=== PATIENT | female | born 1990 | race African-American/Black ===

== ENCOUNTER → 2016-09-29 | Outpatient (CLI) | payer MEDICAID | LOC: RAD 08:44 | PROVIDERS: ATTEND Physician Assistant | DX: K21.0 Gastro-esophageal reflux disease with esophagitis (principal); R13.12 Dysphagia, oropharyngeal phase | CPT/HCPCS: 74220 ==

== ENCOUNTER 2016-10-14 19:23 | Emergency (ER) | payer MEDICAID ==
[2016-10-14] MEDS ORDERED: DEXAMETHASONE SOD PHOS INJ 10 MG/1 ML VIAL IM ONE (20:10)
--- NOTE | 2016-10-14 20:10 | ER Document Report ---
ED Skin Rash/Insect Bite/Abscs - General Chief Complaint: Rash Stated Complaint: POSSIBLE RASH Time seen by provider: 20:03 Mode of Arrival: Ambulatory Information source: Patient Notes: 26-year-old female presents to ED for rash to the arms and chest for 2 weeks. She seen her primary doctor and they did not give her any medication and she has not been able to get any relief from Benadryl or [id number]-[id number] creams or ointments. TRAVEL OUTSIDE OF THE [place] IN LAST 30 DAYS: No - HPI Patient complains to provider of: Skin rash/lesion Onset: Other Onset/Duration: Gradual - 2 weeks, Persistent Quality of pain: No pain Severity: None Pain Level: Denies Skin Character: Rash Quality of rash: Itchy Identify cause: No Exacerbated by: Denies Relieved by: Denies Similar symptoms previously: Yes Recently seen / treated by doctor: Yes - Related Data Allergies/Adverse Reactions: No Known Allergies Allergy (Verified 08/24/15 12:50) Past Medical History - General Information source: Patient - Social History Smoking Status: Current Every Day Smoker Cigarette use (# per day): Yes - half pack a day Chew tobacco use (# tins/day): No Smoking Education Provided: Yes - less than a minute Frequency of alcohol use: None Drug Abuse: None Occupation: [employer]ATOR [employer] Lives with: Alone - Along with her child Family History: Arthritis, DM, Hyperlipidemia, Hypertension Patient has suicidal ideation: No Patient has homicidal ideation: No - Past Medical History Cardiac Medical History: Reports: None Pulmonary Medical History: Reports: None EENT Medical History: Reports: None Neurological Medical History: Reports: None Endocrine Medical History: Reports: None Renal/ Medical History: Reports: None Malignancy Medical History: Reports: None GI Medical History: Reports: None Musculoskeltal Medical History: Reports None Skin Medical History: Reports None Psychiatric Medical History: Reports: Hx Anxiety Traumatic Medical History: Reports: None Infectious Medical History: Reports: None Surgical Hx: Negative Past Surgical History: Reports: None - Immunizations Hx Diphtheria, Pertussis, Tetanus Vaccination: Yes Review of Systems - Review of Systems Constitutional: No symptoms reported EENT: No symptoms reported Cardiovascular: No symptoms reported Respiratory: No symptoms reported Gastrointestinal: No symptoms reported Genitourinary: No symptoms reported Female Genitourinary: No symptoms reported Musculoskeletal: No symptoms reported Skin: Rash - Bilateral arms and chest Hematologic/Lymphatic: No symptoms reported Neurological/Psychological: No symptoms reported -: Yes All other systems reviewed and negative Physical Exam - Vital signs Vitals: Temp Pulse Resp BP Pulse Ox 98.6 F 82 18 128/84 H 99 10/14/16 19:44 10/14/16 19:44 10/14/16 19:44 10/14/16 19:44 10/14/16 19:44 Interpretation: Normal - General General appearance: Appears well, Alert - HEENT Head: Normocephalic, Atraumatic Eyes: Normal Pupils: PERRL - Respiratory Respiratory status: No respiratory distress Chest status: Nontender Breath sounds: Normal Chest palpation: Normal - Cardiovascular Rhythm: Regular Heart sounds: Normal auscultation Murmur: No - Abdominal Inspection: Normal Distension: No distension Bowel sounds: Normal Tenderness: Nontender Organomegaly: No organomegaly - Back Back: Normal, Nontender - Extremities General upper extremity: Normal inspection, Nontender, Normal color, Normal ROM , Normal temperature General lower extremity: Normal inspection, Nontender, Normal color, Normal ROM , Normal temperature, Normal weight bearing. No: Jessica's sign - Neurological Neuro grossly intact: Yes Cognition: Normal Orientation: AAOx4 Jn Coma Scale Eye Opening: Spontaneous [place] Coma Scale Verbal: Oriented [place] Coma Scale Motor: Obeys Commands [place] Coma Scale Total: 15 Speech: Normal Motor strength normal: LUE, RUE, LLE, RLE Sensory: Normal - Psychological Associated symptoms: Normal affect, Normal mood - Skin Skin Temperature: Warm Skin Moisture: Dry Skin Color: Normal Skin irregularity: Rash - Bilateral arms and chest Location of irregularity: Chest, Extremities - Arms Character of irregularity: Macular, Fine, Erythematous Course - Vital Signs Vital signs: Temp Pulse Resp BP Pulse Ox 98.6 F 82 18 128/84 H 99 10/14/16 19:44 10/14/16 19:44 10/14/16 19:44 10/14/16 19:44 10/14/16 19:44 Discharge - Discharge Clinical Impression: Allergic reaction Qualifiers: Encounter type: initial encounter Qualified Code(s): T78.40XA - Allergy, unspecified, initial encounter Condition: Stable Disposition: HOME, SELF-CARE Additional Instructions: ACUTE ALLERGIC REACTION: Your symptoms are due to an allergic reaction. Allergy can cause hives, swelling of the hands, feet, and face, hoarseness, and difficulty swallowing or breathing. It may be due to exposure to medication, animal dander, foods, infection, or insect bites. Medication is a common cause, even when prior use of this same medication caused no problems. Acute treatment may include adrenalin and antihistamines. Usually, the specific allergic agent can't be identified unless repeated episodes occur. Home treatment includes the following: (1) Stop any suspicious medications. This will be discussed with you. (2) Oral antihistamines for the next four to five days. Example, diphenhydramine (Benadryl) every four hours. (3) You may also use cimetidine (Tagamet), ranitidine (Zantac), or famotidine ( Pepcid) every four hours if diphenhydramine is not controlling itching and hives. (4) Avoid aspirin until the hives completely disappear. (5) Avoid hot baths or showers until the hives are completely gone. Call the doctor if faintness, difficulty swallowing, tightness in the chest , or wheezing occurs. STEROID MEDICATION INJECTION: You have been given an injection of medicine of the cortisone/steroid class. This medication is used to control inflammation or allergy. It is often continued as a pill for a short period of time, until the acute process subsides. There are usually no side effects from short-term use of cortisone-like medications. Some persons feel an increased sense of well-being and are not sleepy at bedtime. Long-term use of cortisone medications is best avoided, unless required for a severe condition. If your condition does not remit, or relapses after the course of corticosteroid medication, you should consult your physician. ACID-SUPPRESSING MEDICATION: You have a prescription for medicine which reduces the stomach's secretion of acid. Examples include Zantac, Tagament, and Pepcid. These drugs are often used to allow healing of ulcers or esophagitis. They may be needed to prevent recurrence of ulcers in some patients, or to prevent damage from acid reflux in the esophagus. Take all medication as prescribed, even after the pain is gone. Regular antacids may be added as needed if you have symptoms while taking this medicine. These medications sometimes are prescribed for allergic reactions because they have anti-histaminic effects and relieve the rash and itching of the reaction. There are usually no side effects from this medication. But, in rare cases and particularly in the elderly, serious problems can occur. Contact your doctor if there is fever, rash, hallucinations, confusion, or unusual bruising. Contact your doctor at once if you develop lightheadedness, black or bloody stool, or bloody vomitus. ANTIHISTAMINES: An antihistamine has been given and/or prescribed to control your symptoms. Antihistamines are used for many reasons, including itching, watering eyes, runny nose, allergic swelling, hives, and insect stings. Antihistamines may cause drowsiness, especially with the first dose. Do not operate machinery or drive while under the effects of the medication. Other common side effects include dry mouth and eyes. In older persons, antihistamines can occasionally cause urinary retention, constipation, and trouble focusing the eyes. Do not combine the medication with alcohol, or with any other medication without talking to your doctor. FOLLOW-UP CARE: If you have been referred to a physician for follow-up care, call the physician s office for an appointment as you were instructed or within the next two days. If you experience worsening or a significant change in your symptoms, notify the physician immediately or return to the Emergency Department at any time for re-evaluation. Prescriptions: Famotidine [Pepcid 20 mg Tablet] 20 mg PO BID #12 tablet Hydrocortisone Valerate [Westcort] 15 gm TP BID #1 cream.gm. Hydroxyzine HCl [Atarax 25 mg Tablet] 1 tab PO TIDP PRN #25 tablet PRN Reason: Forms: Elevated Blood Pressure, Return to Work Referrals: INNA FRANKEL DO [ACTIVE STAFF] - Follow up as needed
[2016-10-14] MEDS ORDERED: FAMOTIDINE 20 MG TABLET PO ONE (20:14)
[2016-10-14 20:33] VITALS: BP 117/76
== END 2016-10-14 20:34 | disposition home or self-care (01) ==
LOC: ER 19:23
DX: T78.40XA Allergy, unspecified, initial encounter (principal); R21 Rash and other nonspecific skin eruption; X58.XXXA Exposure to other specified factors, initial encounter; F17.210 Nicotine dependence, cigarettes, uncomplicated; Z71.6 Tobacco abuse counseling
CPT/HCPCS: 99282; 96372; J3490; J1100

== ENCOUNTER 2016-12-22 08:23 | Emergency (ER) | payer MEDICAID ==
[2016-12-22 08:29] VITALS: BP 139/88
[2016-12-22] MEDS ORDERED: AMOXICILLIN TRIHYDRATE 500 MG CAPSULE PO ONE (08:53)
[2016-12-22] MEDS ORDERED: DEXAMETHASONE 4 MG TABLET PO ONE (08:53)
[2016-12-22] MEDS ORDERED: IBUPROFEN 600 MG TABLET PO ONE (08:53)
--- NOTE | 2016-12-22 08:58 | ER Document Report ---
ED General - General Chief Complaint: Sore Throat Stated Complaint: THROAT PAIN, BODY ACHE Time Seen by Provider: 12/22/16 08:32 TRAVEL OUTSIDE OF THE [place] IN LAST 30 DAYS: No - HPI Patient complains to provider of: Diffuse myalgias sore throat Notes: Patient coming in for evaluation sore throat. Body aches. Patient denies fevers chills nausea vomiting. Patient denies any sick contacts. Denies any recent antibiotics. Patient denies any recent travel. Upon my evaluation patient nontoxic looking no obvious distress - Related Data Allergies/Adverse Reactions: No Known Allergies Allergy (Verified 08/24/15 12:50) Past Medical History - Social History Smoking Status: Unknown if Ever Smoked Family History: Arthritis, DM, Hyperlipidemia, Hypertension Renal/ Medical History: Denies: Hx Peritoneal Dialysis Psychiatric Medical History: Reports: Hx Anxiety Infectious Medical History: Denies: Hx MRSA - Immunizations Hx Diphtheria, Pertussis, Tetanus Vaccination: Yes Review of Systems - Review of Systems Constitutional: No symptoms reported EENT: Throat pain Cardiovascular: No symptoms reported Respiratory: No symptoms reported Gastrointestinal: No symptoms reported Genitourinary: No symptoms reported Female Genitourinary: No symptoms reported Musculoskeletal: No symptoms reported Skin: No symptoms reported Hematologic/Lymphatic: No symptoms reported Neurological/Psychological: No symptoms reported -: Yes All other systems reviewed and negative Physical Exam - Vital signs Vitals: Temp Pulse Resp BP Pulse Ox 99.6 F 115 H 18 139/88 H 97 12/22/16 08:26 12/22/16 08:26 12/22/16 08:26 12/22/16 08:26 12/22/16 08:26 Interpretation: Normal - General General appearance: Appears well, Alert - HEENT Head: Normocephalic, Atraumatic Eyes: Normal Conjunctiva: Normal Cornea: Normal Extraocular movements intact: Yes Pupils: PERRL Ears: Normal External canal: Normal Tympanic membrane: Normal Sinus: Normal Nasal: Normal Mouth/Lips: Normal Pharynx: Erythema, Exudate Neck: Normal - Respiratory Respiratory status: No respiratory distress Chest status: Nontender Breath sounds: Normal Chest palpation: Normal - Cardiovascular Rhythm: Regular Heart sounds: Normal auscultation Murmur: No - Abdominal Inspection: Normal Distension: No distension Bowel sounds: Normal Tenderness: Nontender Organomegaly: No organomegaly - Back Back: Normal, Nontender - Extremities General upper extremity: Normal inspection, Nontender, Normal color, Normal ROM , Normal temperature General lower extremity: Normal inspection, Nontender, Normal color, Normal ROM , Normal temperature, Normal weight bearing. No: Jessica's sign - Neurological Neuro grossly intact: Yes Cognition: Normal Orientation: AAOx4 Jn Coma Scale Eye Opening: Spontaneous J[place] Coma Scale Verbal: Oriented Jn Coma Scale Motor: Obeys Commands [place] Coma Scale Total: 15 Speech: Normal Motor strength normal: LUE, RUE, LLE, RLE Sensory: Normal - Psychological Associated symptoms: Normal affect, Normal mood - Skin Skin Temperature: Warm Skin Moisture: Dry Skin Color: Normal Course - Re-evaluation Re-evalutation: 12/22/16 14:11 Patient clinical presentation consistent with strep infection. Rapid strep confirms will treat with amoxicillin and Decadron. Patient will be discharged home follow-up primary care physician - Vital Signs Vital signs: Temp Pulse Resp BP Pulse Ox 99.6 F 115 H 18 139/88 H 97 12/22/16 08:26 12/22/16 08:26 12/22/16 08:26 12/22/16 08:26 12/22/16 08:26 Discharge - Discharge Clinical Impression: Strep throat Condition: Good Disposition: HOME, SELF-CARE Instructions: Strep Throat ([facility]) Additional Instructions: Your examination today is consistent with strep throat. Please take antibiotics as prescribed. He may take Tylenol Motrin for pain control. However recommend follow-up with your physician in 3-5 days. Prescriptions: Magic Mouthwash 5 ml PO Q6 PRN #120 ml PRN Reason: Amoxicillin 500 mg PO TID #30 capsule Ibuprofen [Motrin 600 Mg Tablet] 600 mg PO TID #30 tablet Forms: Return to Work Referrals: SCOTT PEREZ MD [Primary Care Provider] - Follow up as needed
== END 2016-12-22 09:14 | disposition home or self-care (01) ==
LOC: ER 08:23
DX: J02.0 Streptococcal pharyngitis (principal); M79.1 Myalgia
CPT/HCPCS: 99283; 87880; J3490 ×2

== ENCOUNTER 2016-12-23 17:50 | Emergency (ER) | payer MEDICAID ==
[2016-12-23] MEDS ORDERED: DEXAMETHASONE SOD PHOS INJ 10 MG/1 ML VIAL IM ONE (19:46)
[2016-12-23] MEDS ORDERED: OXYCODONE-ACETAMINOPHEN 5-325 MG TABLET PO ONE (19:46)
[2016-12-23] MEDS ORDERED: ONDANSETRON 4 MG TAB.RAPDIS PO ONE (19:46)
[2016-12-23] MEDS ORDERED: PENICILLIN G BENZATHINE 1.2 MILLION UNIT/2 ML DISP.SYRIN IM ONE (19:46)
--- NOTE | 2016-12-23 19:48 | ER Document Report ---
HPI - HPI Patient complains to provider of: Sore throat Pain Level: 5 Context: Patient is a 26-year-old female that comes emergency department for chief complaint of sore throat, she was evaluated in the emergency department yesterday and diagnosed with strep throat, she has had a single dose of amoxicillin, she states that she feels like her pain is worse. She denies fever , she developed symptoms almost 3 days ago initially. She denies abdominal pain , vomiting, difficulty breathing. She denies any obvious sick contacts. She denies any daily medications. LMP within the past month. - REPRODUCTIVE Reproductive: DENIES: : - DERM Skin Color: Normal Past Medical History - General Information source: Patient - Social History Smoking Status: Never Smoker Drug Abuse: None Lives with: Family Family History: Arthritis, DM, Hyperlipidemia, Hypertension Patient has suicidal ideation: No Patient has homicidal ideation: No Renal/ Medical History: Denies: Hx Peritoneal Dialysis Psychiatric Medical History: Reports: Hx Anxiety, Hx Depression Infectious Medical History: Denies: Hx MRSA Surgical Hx: Negative - Immunizations Hx Diphtheria, Pertussis, Tetanus Vaccination: Yes Vertical Provider Document - CONSTITUTIONAL General Appearance: WD/WN, No Apparent Distress - Patient is actually calm and well-appearing - INFECTION CONTROL TRAVEL OUTSIDE OF THE [place] IN LAST 30 DAYS: No - HEENT HEENT: Atraumatic, Normocephalic. negative: Normal ENT Exam - Bilateral tonsillar hypertrophy with exudate, normal uvula, normal exam otherwise with no swelling or evidence of peritonsillar abscess, clear airway - NECK Neck: Normal Inspection - RESPIRATORY Respiratory: Breath Sounds Normal, No Respiratory Distress O2 Sat by Pulse Oximetry: 99 - CARDIOVASCULAR Cardiovascular: Regular Rate, Regular Rhythm - GI/ABDOMEN Gastrointestinal: Abdomen Soft, Abdomen Non-Tender - BACK Back: Normal Inspection - MUSCULOSKELETAL/EXTREMETIES Musculoskeletal/Extremeties: MAEW, FROM, Non-Tender - NEURO Level of Consciousness: Awake, Alert, Appropriate - DERM Integumentary: Warm, Dry, No Rash Course - Re-evaluation Re-evalutation: Patient does have exudative pharyngitis with some anterior cervical adenopathy, however she does not have any evidence of peritonsillar abscess, uvular edema, or airway compromise. She is actually quite well-appearing on exam. Her abdomen is soft, no evidence of splenomegaly. I did offer to test her for mono as well. She was positive for strep yesterday. Patient declines any additional testing, patient will be treated with dexamethasone, IM penicillin G , stop amoxicillin by mouth (patient states she has had strep throat several times in the past including treatment failures but she is unsure which medication treatment failure was with). Discussed follow-up with primary care to, discussed return precautions including any signs of developing worsening symptoms such as peritonsillar abscess. Patient states understanding and agreement. - Vital Signs Vital signs: Temp Pulse Resp BP Pulse Ox 98.7 F 84 16 141/81 H 99 12/23/16 18:07 12/23/16 18:07 12/23/16 18:07 12/23/16 18:07 12/23/16 18:07 Discharge - Discharge Clinical Impression: Strep throat, Exudative pharyngitis Condition: Stable Disposition: HOME, SELF-CARE Additional Instructions: You have been given penicillin G injection for treatment of strep throat pharyngitis, you have also been given dexamethasone. There is still a possibility we will also have a viral infection of your throat. Continue ibuprofen, drink plenty of fluids, do not continue the amoxicillin. Follow up with Primary care Return to emergency department for any concerning or worsening symptoms including increased pain, difficulty swallowing or handling secretions, or any other concerning symptoms. Referrals: SCOTT PEREZ MD [Primary Care Provider] - Follow up as needed
[2016-12-23 21:05] VITALS: BP 131/93
== END 2016-12-23 21:52 | disposition home or self-care (01) ==
LOC: ER 17:50
DX: J02.0 Streptococcal pharyngitis (principal)
CPT/HCPCS: 99282; 96372; S0119; J0561; J1100

== ENCOUNTER 2017-04-23 13:46 | Emergency (ER) | payer MEDICAID ==
--- NOTE | 2017-04-23 14:25 | ER Document Report ---
ED Psych Disorder / Suicide - General Chief Complaint: Psych Problem Stated Complaint: POSSIBLE OVERDOSE Time Seen by Provider: 04/23/17 14:15 Mode of Arrival: Stretcher Information source: Patient TRAVEL OUTSIDE OF THE [place] IN LAST 30 DAYS: No - HPI Patient complains to provider of: Overdose Onset: Just prior to arrival Onset was: Sudden Quality of pain: No pain Suicide Risk Factors: Depressed, Substance abuse Situational problems related to: Legal problems Overdose of: Benzodiazepine Normal mood: No Associated symptoms: Depressed, Flat affect, Tearful Similar symptoms previously: No Recently seen / treated by doctor: No Notes: Patient is a 27-year-old female who presents to the emergency room for overdose , she admits to taking five 10 mg Ambien and 7 Xanax, this occurred around 10 AM , she reports that she took these medications because she just wanted to go to sleep, she denies that it was a suicide attempt, she denies any homicidal ideation, no history of similar symptoms previously, she does report increased stressors over the last few days and in fact was recently arrested for cocaine possession, she has an upcoming appointment with a psychiatrist and is currently in a psychotherapy program [facility], several family members are at bedside including patient's mother and father - Related Data Allergies/Adverse Reactions: No Known Allergies Allergy (Verified 12/23/16 18:06) Home Medications: Current Home Medications Alprazolam 1 mg PO QID PRN 04/23/17 [History] Brexpiprazole [Rexulti] 1 mg PO DAILY 04/23/17 [History] Oxcarbazepine [Trileptal] 150 mg PO BID 04/23/17 [History] Zolpidem Tartrate 10 mg PO QHS 04/23/17 [History] Past Medical History - General Information source: Patient - Social History Smoking Status: Current Every Day Smoker Frequency of alcohol use: Heavy Drug Abuse: Cocaine Family History: Arthritis, DM, Hyperlipidemia, Hypertension Renal/ Medical History: Denies: Hx Peritoneal Dialysis Psychiatric Medical History: Reports: Hx Anxiety, Hx Depression Infectious Medical History: Denies: Hx MRSA - Immunizations Hx Diphtheria, Pertussis, Tetanus Vaccination: Yes Review of Systems - Review of Systems Constitutional: No symptoms reported EENT: No symptoms reported Cardiovascular: No symptoms reported Respiratory: No symptoms reported Gastrointestinal: No symptoms reported Genitourinary: No symptoms reported Female Genitourinary: No symptoms reported Musculoskeletal: No symptoms reported Skin: No symptoms reported Hematologic/Lymphatic: No symptoms reported Neurological/Psychological: See HPI -: Yes All other systems reviewed and negative Physical Exam - Vital signs Vitals: Resp Pulse Ox 16 99 04/23/17 14:09 04/23/17 14:09 Interpretation: Normal - General General appearance: Appears well, Alert - HEENT Head: Normocephalic, Atraumatic Eyes: Normal Pupils: PERRL - Respiratory Respiratory status: No respiratory distress Chest status: Nontender Breath sounds: Normal Chest palpation: Normal - Cardiovascular Rhythm: Regular Heart sounds: Normal auscultation Murmur: No - Abdominal Inspection: Normal Distension: No distension Bowel sounds: Normal Tenderness: Nontender Organomegaly: No organomegaly - Back Back: Normal, Nontender - Extremities General upper extremity: Normal inspection, Nontender, Normal color, Normal ROM , Normal temperature General lower extremity: Normal inspection, Nontender, Normal color, Normal ROM , Normal temperature, Normal weight bearing. No: Jessica's sign - Neurological Neuro grossly intact: Yes Cognition: Normal Orientation: AAOx4 [place] Coma Scale Eye Opening: Spontaneous [place] Coma Scale Verbal: Oriented [place] Coma Scale Motor: Obeys Commands [place] Coma Scale Total: 15 Speech: Normal Motor strength normal: LUE, RUE, LLE, RLE Sensory: Normal - Psychological Associated symptoms: Depressed, Flat affect, Tearful - Skin Skin Temperature: Warm Skin Moisture: Dry Skin Color: Normal Course - Re-evaluation Re-evalutation: 04/23/17 23:54 Patient was seen and evaluated by mental health team who confirmed that patient denies suicidal or homicidal ideation, stating that she has increased stressors and was taking these medications in an attempt to fall asleep because she has been having trouble sleeping, several family members are at bedside and are in agreement with patient being discharged home with outpatient follow-up, patient also reports that she feels safe to be discharged home and was advised that she can return at anytime should her symptoms worsen or she require additional assistance, patient acknowledges understanding and agreement with this plan 04/23/17 23:55 Poison control was contacted by nursing staff and they recommended a 6 hour observation time prior to medical clearance, patient was observed in the emergency room 6 hours post ingestion with stable vital signs, awake and alert, agreeable with discharge home - Vital Signs Vital signs: Temp Pulse Resp BP Pulse Ox 98.6 F 15 127/84 H 98 04/23/17 16:56 04/23/17 16:56 04/23/17 16:56 04/23/17 16:56 - Laboratory Result Diagrams: 04/23/17 14:15 04/23/17 14:15 Laboratory results interpreted by me: 04/23/17 04/23/17 04/23/17 14:15 14:15 15:46 RDW 15.9 H Potassium 2.9 L* BUN 6 L Urine Blood MODERATE H Salicylates < 1.0 L Acetaminophen < 10 L - EKG Interpretation by Me EKG shows normal: Sinus rhythm Rate: Tachycardia Discharge - Discharge Clinical Impression: Overdose Qualifiers: Encounter type: initial encounter Injury intent: accidental or unintentional Qualified Code(s): T50.901A - Poisoning by unspecified drugs, medicaments and biological substances, accidental (unintentional), initial encounter Condition: Stable Disposition: HOME, SELF-CARE Instructions: Instructions for Home Care Following a Drug Overdose ([facility]), Overdose ([facility]), Overdose / Ingestion ([facility]) Additional Instructions: Follow up with your primary care provider and mental health professional in one to 2 days. Return to the emergency room immediately if symptoms worsen or any additional concerns. Referrals: SCOTT PEREZ MD [Primary Care Provider] - Follow up as needed
[2017-04-23 14:31] LABS: ABSOLUTE BASOPHILS # (AUTO) 0.1 10^3/uL (0.0-0.2); ABSOLUTE EOSINOPHILS # (AUTO) 0.1 10^3/uL (0.0-0.6); ABSOLUTE LYMPHOCYTES (AUTO) 2.4 10^3/uL (0.5-4.7); ABSOLUTE MONOCYTES (AUTO) 0.8 10^3/uL (0.1-1.4); ABSOLUTE NEUT (AUTO) 6.1 10^3/uL (1.7-8.2); BASOPHILS % (AUTO) 0.6 % (0-2); EOSINOPHILS % (AUTO) 1.3 % (0-6); HEMATOCRIT 39.2 % (36.0-47.0); HEMOGLOBIN 13.1 g/dL (12.0-15.5); HGB HCT DIFFERENCE 0.1; MEAN CORPUSCULAR HEMOGLOBIN 28.2 pg (27.0-33.4); MEAN CORPUSCULAR HGB CONC 33.5 g/dL (32.0-36.0); MEAN CORPUSCULAR VOLUME 84 fl (80-97); MONOCYTES % (AUTO) 8.3 % (3-13); RED BLOOD COUNT 4.66 10^6/uL (3.72-5.28); RED CELL DISTRIBUTION WIDTH 15.9 % (11.5-14.0); SEGMENTED NEUTROPHILS % (AUTO) 64.8 % (42-78); WHITE BLOOD COUNT 9.5 10^3/uL (4.0-10.5)
[2017-04-23 15:11] LABS: ALANINE AMINOTRANSFERASE 29 U/L (9-52); ALKALINE PHOSPHATASE 97 U/L (38-126); ANION GAP 13 (5-19); ASPARTATE AMINO TRANSFERASE 22 U/L (14-36); BILIRUBIN,DIRECT 0.3 mg/dL (0.0-0.4); BILIRUBIN,TOTAL 0.9 mg/dL (0.2-1.3); BLOOD UREA NITROGEN 6 mg/dL (7-20); CARBON DIOXIDE 28 mmol/L (22-30); CHLORIDE 103 mmol/L (98-107); CREATININE RESULT 0.82 mg/dL (0.52-1.25); GLUCOSE 85 mg/dL (75-110); SODIUM 143.8 mmol/L (137-145); TOTAL PROTEIN 7.7 g/dL (6.3-8.2)
[2017-04-23 15:16] LABS: ALCOHOL < 10 mg/dL (NONE DETECTED)
[2017-04-23 15:18] LABS: POTASSIUM 2.9 mmol/L (3.6-5.0)
[2017-04-23] MEDS ORDERED: POTASSIUM CHLORIDE 10 MEQ TABLET.SA PO ONE (15:24)
--- NOTE | 2017-04-23 16:08 | PSYCHOLOGICAL NOTE ---
Psych Note - Psych Note Psych Note: patient arrived to ED via EMS for potiental overdose. patient told EMS that she took 7 1mg of xanax and 5-10mg of ambien at 10 am. states that she did not want to kill herself but was just tired. when patient was question by provider and this RN, patient was not willing to answer questions. Patient disclosed that she came to [facility] because she "took too many pills" patient states that she took Xanax and Ambien because she "just wanted to go to sleep... Just wanted to forget the whole day but not to not wake up." Patient disclosed that on Wednesday she was arrested for possession of cocaine and paraphernalia. She continues state and has been very stressful she also then broke up with her boyfriend. Patient reports she only gets about 4 hours of sleep since Wednesday and her anxiety has been difficult because she hears all of her neighbors; "I live in a townhouse and you hear everything then walking up and down the stairs talking..." Patient attends [facility] for medication management however reports that next week Wednesday at 230pm she has her first therapeutic appointment. Patient disclosed that she has a strong family support system and agrees to stay with her family until her outpatient provider has been working with her. She also agrees to allow her family control of her medications. Patient did disclose she text her friend after taking the medication to go to sleep about how angry she was and that she was just "done for the day.. done listening to people and arguing..said bubba that she was going to sleep." Patient proceeded to start crying stating that she does not want her family think that she actually wanted to kill herself she just wanted to get some sleep because she was mad. Patient's family and closing machine operator at bedside. Patient provided consent to discuss with them her case. Patient's family disclosed the patient has been suffering from addiction and are concerned. Patient's family agrees to ensure patient has no access to medications or weapons and follows up with her outpatient mental health and substance abuse treatment. Patient's father disclosed that he has been sober for 20 years after substance abuse and wants to ensure his daughter knows she has a support. Patient is alert and orientated to person, place, time and circumstance. Mood is dysphoric with tearful affect. Patient denies suicidal ideation stating that her suicidal gesture was not intent of suicide rather attempting to get some sleep because she was so mad. Patient denies homicidal ideation. Patient denies auditory and visual hallucinations. Delusions are absent and behaviors congruent with intact reality based presentation i.e. organized, linear, rational thinking. Eye contact was well-maintained. Intellectual abilities appear to be within the average range. Attention and concentration are good. Insight, judgment, impulse control is fair. Patient has substance abuse history ; cocaine. 311 (F32.9) unspecified depressive disorder 292.9 (F14.99 unspecified cocaine abuse Impression\\plan: Patient is considered psychiatrically clear. Patient does not meet IVC criteria per [place] GS 122C. Patient adamantly denies attempted suicide rather that she took medication and attempt to get sleep. Patient states she was very angry did not want to have to deal with anybody and wanted be done for the day. Patient disclosed substance abuse with cocaine which resulted in being arrested on Wednesday. She also broke up with her boyfriend over the weekend. Patient has strong family support system of both patient and family agreed to ensure patient does not have any access to medications (to include all the patient's prescriptions to be handed individually at time it is prescribed) or weapons and follows up with outpatient mental health and substance abuse treatment. Patient has a therapeutic appointment already set up for 04/28/2017 at 2:30 PM at [facility]. Is also recommended the patient receive a substance abuse assessment. Dr. Pedroza was consulted and the care and management of this patient; attending physician is agreement with recommendations and disposition.
[2017-04-23 16:20] LABS: APPEARANCE,URINE CLEAR; BILIRUBIN,URINE NEGATIVE (NEGATIVE); GLUCOSE, URINE NEGATIVE (NEGATIVE); KETONES,URINE NEGATIVE (NEGATIVE); LEUKOCYTE ESTERASE,URINE NEGATIVE (NEGATIVE); NITRITE,URINE NEGATIVE (NEGATIVE); PROTEIN,URINE NEGATIVE (NEGATIVE); URINE SPECIFIC GRAVITY 1.008; UROBILINOGEN,URINE NEGATIVE mg/dL (<2.0)
[2017-04-23 16:40] LABS: URINE BARBITURATES SCREEN NEGATIVE; URINE METHADONE SCREEN NEGATIVE; URINE OPIATES LOW NEGATIVE; URINE PHENCYCLIDINE SCREEN NEGATIVE
[2017-04-23 16:59] VITALS: BP 127/84
--- NOTE | 2017-04-23 18:37 | EKG REPORT ---
SEVERITY:- BORDERLINE ECG - SINUS TACHYCARDIA : Confirmed by: Finesse Thakkar MD 23-Apr-2017 18:36:37
== END 2017-04-23 16:59 | disposition home or self-care (01) ==
LOC: ER 13:46
DX: T50.901A Poisoning by unspecified drugs, medicaments and biological substances, accidental (unintentional), initial encounter (principal); F32.9 Major depressive disorder, single episode, unspecified; F17.200 Nicotine dependence, unspecified, uncomplicated; F14.99 Cocaine use, unspecified with unspecified cocaine-induced disorder
CPT/HCPCS: 36415; 80053; 80307; 81001; 84703; 85025; 93005; 93010; 99285

== ENCOUNTER 2017-07-23 08:31 | Emergency (ER) | payer MEDICAID ==
--- NOTE | 2017-07-23 09:11 | ER Document Report ---
HPI - HPI Patient complains to provider of: vomiting, diarrhea, cough-mild Onset: Yesterday Quality of pain: Achy - generalized Pain Level: 5 Context: 27 yo female c/o decreased appetite, diarrhea, dry cough since yesterday. Bodyaches. no fever. no chest pain or sob. No pelvic or abd. pain. Associated Symptoms: None Exacerbated by: Denies Relieved by: Denies Similar symptoms previously: No Recently seen / treated by doctor: No - ROS ROS below otherwise negative: Yes Systems Reviewed and Negative: Yes All other systems reviewed and negative - REPRODUCTIVE Reproductive: DENIES: : Past Medical History - General Information source: Patient - Social History Smoking Status: Unknown if Ever Smoked Frequency of alcohol use: None Drug Abuse: None Lives with: Family Family History: Arthritis, DM, Hyperlipidemia, Hypertension Renal/ Medical History: Denies: Hx Peritoneal Dialysis Psychiatric Medical History: Reports: Hx Anxiety, Hx Depression Infectious Medical History: Denies: Hx MRSA Surgical Hx: Negative - Immunizations Hx Diphtheria, Pertussis, Tetanus Vaccination: Yes Vertical Provider Document - CONSTITUTIONAL Agree With Documented VS: Yes Exam Limitations: No Limitations General Appearance: No Apparent Distress - INFECTION CONTROL TRAVEL OUTSIDE OF THE [place] IN LAST 30 DAYS: No - HEENT HEENT: Normocephalic, Pharyngeal Erythema - mild. negative: Conjuctival Injection, Tympanic Membrane Red - NECK Neck: Supple. negative: Lymphadenopathy-Left, Lymphadenopathy-Right - RESPIRATORY Respiratory: Breath Sounds Normal, No Respiratory Distress O2 Sat by Pulse Oximetry: 100 - CARDIOVASCULAR Cardiovascular: Regular Rate, Regular Rhythm - GI/ABDOMEN Gastrointestinal: Abdomen Soft, Abdomen Non-Tender, No Organomegaly, Normal Bowel Sounds - BACK Back: negative: CVA Tenderness-Right, CVA Tenderness-Left - MUSCULOSKELETAL/EXTREMETIES Musculoskeletal/Extremeties: MAEW - NEURO Level of Consciousness: Awake, Alert, Appropriate - DERM Integumentary: Warm, Dry, No Rash Course - Vital Signs Vital signs: Temp Pulse Resp BP Pulse Ox 99.0 F 96 16 139/84 H 100 07/23/17 08:36 07/23/17 08:36 07/23/17 08:36 07/23/17 08:36 07/23/17 08:36 Discharge - Discharge Clinical Impression: Vomiting and diarrhea, Decreased appetite Condition: Good Disposition: HOME, SELF-CARE Instructions: Diarrhea, Nonspecific ([facility]), Nausea or Vomiting, Nonspecific ([facility] ) Additional Instructions: Plenty of fluids Radha milka and saltines Advance diet as tolerated Return to work on Wednesday Return to the emergency room for any abdominal pain fever or worsening of the symptoms Forms: Return to Work Referrals: SCOTT PEREZ MD [Primary Care Provider] - Follow up as needed
[2017-07-23 10:34] VITALS: BP 119/85
== END 2017-07-23 10:34 | disposition home or self-care (01) ==
LOC: ER 08:31
DX: R11.10 Vomiting, unspecified (principal); R19.7 Diarrhea, unspecified; F50.89 Other specified eating disorder; R05 Cough; M79.1 Myalgia
CPT/HCPCS: 99283

== ENCOUNTER 2017-10-03 19:02 | Emergency (ER) | payer MEDICAID ==
[2017-10-03 19:08] VITALS: BP 130/78
== END 2017-10-03 20:21 | disposition left against medical advice (07) ==
LOC: ER 19:02
DX: Z53.21 Procedure and treatment not carried out due to patient leaving prior to being seen by health care provider (principal)

== ENCOUNTER 2018-05-22 08:30 | Emergency (ER) | payer MEDICAID ==
--- NOTE | 2018-05-22 09:44 | ER Document Report ---
HPI - HPI Patient complains to provider of: cough Time Seen by Provider: 05/22/18 09:10 Pain Level: 4 Context: Patient is a 28-year-old female presenting to the emergency department complaining of a cough and congestion for the last 3 days. Patient is also noted a subjective fever. Patient states this morning she woke up with swelling on the anterior aspect of her neck and states when she touches her neck the swelling hurts. Patient denies nausea, vomiting, diarrhea, dysuria. Past medical history: None Medications: None Allergies: None - CONSTITUTIONAL Constitutional: DENIES: Fever, Chills - EENT EENT: REPORTS: Sore Throat - Only to L side. DENIES: Ear Pain, Eye problems - NEURO Neurology: DENIES: Headache, Weakness, Vision blurred, Dizzinesss / Vertigo - CARDIOVASCULAR Cardiovascular: DENIES: Chest pain - RESPIRATORY Respiratory: REPORTS: Coughing - productive x 2 days. DENIES: Trouble Breathing - GASTROINTESTINAL Gastrointestinal: DENIES: Abdominal Pain, Black / Bloody Stools - URINARY Urinary: DENIES: Dysuria, Urgency, Frequency - REPRODUCTIVE LMP: 05/16/18 Reproductive: DENIES: :, Postmenopausal, Abnormal bleeding / discharge - MUSCULOSKELETAL Musculoskeletal: DENIES: Extremity pain Past Medical History - General Information source: Patient - Social History Smoking Status: Unknown if Ever Smoked Lives with: Family Family History: Arthritis, DM, Hyperlipidemia, Hypertension Patient has suicidal ideation: No Patient has homicidal ideation: No Renal/ Medical History: Denies: Hx Peritoneal Dialysis Skin Medical History: Denies Hx MRSA Psychiatric Medical History: Reports: Hx Anxiety, Hx Depression Infectious Medical History: Denies: Hx MRSA - Immunizations Hx Diphtheria, Pertussis, Tetanus Vaccination: Yes Vertical Provider Document - CONSTITUTIONAL Agree With Documented VS: Yes Notes: GENERAL: Alert, interacts well. No acute distress. HEAD: Normocephalic, atraumatic. No frontal or maxillary sinus tenderness. EYES: Pupils equal, round, and reactive to light. Extraocular movements intact. ENT: Oral mucosa moist, tongue midline. Nares patent, swollen turbinates bilaterally, TM's intact, nonerythematous, nonbulging. Pharynx within normal limits, no palatal petechiae or exudate noted tonsils +2 bilaterally NECK: Full range of motion. Supple. Trachea midline. Minor cervical lymphadenopathy appreciated bilaterally LUNGS: Clear to auscultation bilaterally, no wheezes, rales, or rhonchi. No respiratory distress. HEART: Regular rate and rhythm. No murmur ABDOMEN: Soft, non-tender. Non-distended. Bowel sounds present in all 4 quadrants. EXTREMITIES: Moves all 4 extremities spontaneously. No edema, normal radial and dorsalis pedis pulses bilaterally. No cyanosis. BACK: no cervical, thoracic, lumbar midline tenderness. No saddle anesthesia, normal distal neurovascular exam. NEUROLOGICAL: Alert and oriented x3. Normal speech. cranial nerves II through XII grossly intact. PSYCH: Normal affect, normal mood. SKIN: Warm, dry, normal turgor. No rashes or lesions noted. - INFECTION CONTROL TRAVEL OUTSIDE OF THE [place] IN LAST 30 DAYS: No Course - Re-evaluation Re-evalutation: 05/22/18 09:42 Patient denies sore throat when she swallows or coughs. States the only pain she has is when she touches the anterior aspect of her outside neck. Discussed with her lymphadenopathy and how her body is currently fighting an upper respiratory infection caused by viruses. Patient is nontoxic, well-hydrated and afebrile at this time. Discussed close return precautions - Vital Signs Vital signs: Temp Pulse Resp BP Pulse Ox 99.0 F 97 16 132/85 H 98 05/22/18 08:37 05/22/18 08:37 05/22/18 08:37 05/22/18 08:37 05/22/18 08:37 Discharge - Discharge Clinical Impression: Lymphadenopathy Upper respiratory infection Qualifiers: URI type: unspecified viral URI Qualified Code(s): J06.9 - Acute upper respiratory infection, unspecified Condition: Stable Disposition: HOME, SELF-CARE Instructions: Upper Respiratory Illness ([facility]), Viral Syndrome ([facility]) Prescriptions: Benzonatate [Tessalon Perles 100 mg Capsule] 100 mg PO Q8HP PRN #40 capsule PRN Reason: Mometasone Furoate [Nasonex] 1 spray NS Q12 #1 spray.pump Pseudoephedrine HCl [Sudafed 12 Hour] 120 mg PO BID #16 tablet.er Referrals: SCOTT PEREZ MD [Primary Care Provider] - Follow up as needed
[2018-05-22 09:59] VITALS: BP 123/85
== END 2018-05-22 09:58 | disposition home or self-care (01) ==
LOC: ER 08:30
DX: J06.9 Acute upper respiratory infection, unspecified (principal); R59.1 Generalized enlarged lymph nodes; R05 Cough; R09.81 Nasal congestion; R50.9 Fever, unspecified; M54.2 Cervicalgia; J02.9 Acute pharyngitis, unspecified
CPT/HCPCS: 99283

== ENCOUNTER 2018-07-10 09:29 | Emergency (ER) | payer MEDICAID ==
[2018-07-10 09:43] VITALS: BP 124/85
--- NOTE | 2018-07-10 09:52 | ER Document Report ---
ED Medical Screen (RME) - General Chief Complaint: Cyst Stated Complaint: POSSIBLE ABSCESS Time Seen by Provider: 07/10/18 09:51 Primary Care Provider: SCOTT PEREZ MD [Primary Care Provider] - Follow up as needed Notes: 28-year-old female patient with history that is quite suggestive of hidradenitis suppurativa. She has painful swelling in the right axilla which is getting progressively worse over the past 1-2 days. She has had abscesses lanced in her axilla at least 3 times in the past. I have greeted and performed a rapid initial assessment of this patient. A comprehensive ED assessment and evaluation of the patient, analysis of test results and completion of the medical decision making process will be conducted by additional ED providers. TRAVEL OUTSIDE OF THE [place] IN LAST 30 DAYS: No - Related Data Allergies/Adverse Reactions: No Known Allergies Allergy (Verified 07/10/18 09:30) Past Medical History Renal/ Medical History: Denies: Hx Peritoneal Dialysis Skin Medical History: Denies Hx MRSA Psychiatric Medical History: Reports: Hx Anxiety, Hx Depression Infectious Medical History: Denies: Hx MRSA - Immunizations Hx Diphtheria, Pertussis, Tetanus Vaccination: Yes Physical Exam - Vital signs Vitals: Temp Pulse Resp BP Pulse Ox 98.5 F 122 H 20 124/85 100 07/10/18 09:42 07/10/18 09:42 07/10/18 09:42 07/10/18 09:42 07/10/18 09:42 Course - Vital Signs Vital signs: Temp Pulse Resp BP Pulse Ox 98.5 F 122 H 20 124/85 100 07/10/18 09:42 07/10/18 09:42 07/10/18 09:42 07/10/18 09:42 07/10/18 09:42 Doctor's Discharge - Discharge Referrals: SCOTT PEREZ MD [Primary Care Provider] - Follow up as needed
[2018-07-10] MEDS ORDERED: OXYCODONE-ACETAMINOPHEN 5-325 MG TABLET PO ONE (10:25)
[2018-07-10] MEDS ORDERED: LIDOCAINE 1%/EPINEPHRINE INJ 20 ML VIAL INJ ONE (10:25)
--- NOTE | 2018-07-10 10:30 | ER Document Report ---
ED Skin Rash/Insect Bite/Abscs - General Chief Complaint: Cyst Stated Complaint: POSSIBLE ABSCESS Time Seen by Provider: 07/10/18 09:51 Primary Care Provider: SCOTT PEREZ MD [Primary Care Provider] - Follow up as needed Information source: Patient Notes: 28-year-old female presents today with 3 days of a right axillary "abscess". No fevers or vomiting. Patient has had abscesses in the past to this region x3. Patient denies a history of diabetes. TRAVEL OUTSIDE OF THE [place] IN LAST 30 DAYS: No - HPI Patient complains to provider of: Skin rash/lesion Onset: Other - See above Onset/Duration: Gradual Quality of pain: Achy Severity: Moderate Pain Level: 1 Skin Character: Other - See above Similar symptoms previously: Yes Recently seen / treated by doctor: Yes - Related Data Allergies/Adverse Reactions: No Known Allergies Allergy (Verified 07/10/18 09:30) Past Medical History - Social History Smoking Status: Current Every Day Smoker Chew tobacco use (# tins/day): No Frequency of alcohol use: None Drug Abuse: None Family History: Arthritis, DM, Hyperlipidemia, Hypertension Patient has suicidal ideation: No Patient has homicidal ideation: No Renal/ Medical History: Denies: Hx Peritoneal Dialysis Skin Medical History: Denies Hx MRSA Psychiatric Medical History: Reports: Hx Anxiety, Hx Depression Infectious Medical History: Denies: Hx MRSA - Immunizations Hx Diphtheria, Pertussis, Tetanus Vaccination: Yes Physical Exam - Vital signs Vitals: Temp Pulse Resp BP Pulse Ox 98.5 F 122 H 20 124/85 100 07/10/18 09:42 07/10/18 09:42 07/10/18 09:42 07/10/18 09:42 07/10/18 09:42 Interpretation: Normal Notes: Reviewed vital signs and nursing note as charted by RN. CONSTITUTIONAL: Alert and oriented and responds appropriately to questions. Well-appearing; well-nourished HEAD: Normocephalic; atraumatic SKIN: Patient has a tender fluctuant lesion underneath the right axilla consistent with an abscess. No surrounding cellulitis like skin lesions present NEURO: CN 2-12 intact; 5/5 bilateral upper and lower extremity strength with sensation intact to light touch Course - Re-evaluation Re-evalutation: 07/10/18 10:27 Given the above history and physical examination we will perform an abscess I and D and start the patient on a short course of antibiotics. Given the patient's repeat episodes, I will perform an Accu-Chek. After the procedure and Accu-Chek is been performed of the glucose is unremarkable, I will discharge the patient home with strict return precautions and follow-up with general surgery for further assessment and possible sweat gland excision. - Vital Signs Vital signs: Temp Pulse Resp BP Pulse Ox 98.5 F 122 H 20 124/85 100 07/10/18 09:42 07/10/18 09:42 07/10/18 09:42 07/10/18 09:42 07/10/18 09:42 Procedures - Incision and Drainage Right Upper Arm Time completed: 10:45 Type: Simple Anesthetic type: 1% Lidocaine w/epi Blade size: 11 I&D procedure: Chlorprep applied Incision Method: Incision made by scalpel Notes: 07/10/18 10:29 Probbed and deloculated with packing with quarter inch iodoform gauze Discharge - Discharge Clinical Impression: Abscess Condition: Good Disposition: HOME, SELF-CARE Additional Instructions: Come back immediately for any increased pain, swelling, fever, vomiting, or any other acute problems. Please follow-up with general surgery as we have discussed. Prescriptions: Sulfamethoxazole/Trimethoprim [Septra-Ds 800-160 mg Tablet] 1 tab PO BID #14 tablet Referrals: SCOTT PEREZ MD [Primary Care Provider] - Follow up as needed FARIDA HALEY MD [[facility]] - Follow up as needed
== END 2018-07-10 11:05 | disposition home or self-care (01) ==
LOC: ER 09:29
PROC: 0H9BXZZ Drainage of Right Upper Arm Skin, External Approach (ICD-10-PCS; principal; 2018-07-10)
DX: L02.411 Cutaneous abscess of right axilla (principal); R21 Rash and other nonspecific skin eruption; F17.200 Nicotine dependence, unspecified, uncomplicated
CPT/HCPCS: 99283; 82962; 10060; A6266; J3490

== ENCOUNTER 2018-08-04 12:08 | Day surgery (SDC) | payer MEDICAID ==
[2018-08-01 10:10] LABS: HEMATOCRIT 37.9 % (36.0-47.0); HEMOGLOBIN 12.5 g/dL (12.0-15.5); MEAN CORPUSCULAR HEMOGLOBIN 27.4 pg (27.0-33.4); MEAN CORPUSCULAR HGB CONC 32.9 g/dL (32.0-36.0); MEAN CORPUSCULAR VOLUME 83 fl (80-97); PLATELET COUNT 333 10^3/uL (150-450); RED BLOOD COUNT 4.55 10^6/uL (3.72-5.28)
[~2018-08-04 12:08] MED LIST: BUPIVACAINE HCL 0.25 % INJ/PF (2.5 MG/1 ML) 30 ML VIAL ONE; BUPIVACAINE INJ/PF LIPOSOME/PF 266 MG/20 ML SDV ONE; CEFAZOLIN 1 GM/D5W RTU 1 GM/50 ML RTUPB IV PRN
[2018-08-04] MEDS ORDERED: LIDOCAINE 2% INJ-PF (20 MG/ML) 10 ML AMPUL ONE (12:56)
[2018-08-04] MEDS ORDERED: FENTANYL CITRATE INJ/PF 100 MCG/2 ML AMPUL ONE (12:57)
[2018-08-04] MEDS ORDERED: KETAMINE HCL INJ 500 MG/10 ML VIAL ONE (12:57)
[2018-08-04] MEDS ORDERED: MIDAZOLAM 2 MG/2 ML INJ ONE ×2 (12:57→14:30)
[2018-08-04] MEDS ORDERED: PROPOFOL INJ 200 MG/20 ML VIAL IV ONE (12:57)
[2018-08-04] MEDS ORDERED: GLYCOPYRROLATE INJ 0.4 MG/2 ML VIAL ONE (14:08)
[2018-08-04] MEDS ORDERED: BUPIVACAINE HCL 0.25 % INJ/PF (2.5 MG/1 ML) 30 ML VIAL ONE ×2 (14:19→14:43)
[2018-08-04] MEDS ORDERED: HYDROCODONE/ACETAMINOPHEN 5-325 MG TABLET ONE ×2 (15:29→15:30)
--- NOTE | 2018-08-06 20:11 | Discharge Summary ---
Discharge Summary (SDC) - Discharge Final Diagnosis: Right axillary hidradenitis Date of Surgery: 08/04/18 Discharge Date: 08/04/18 Condition: Stable Forms: [facility] Discharge Plan Treatment or Instructions: Discharge home. Diet as tolerated. Activity: No strenuous activity. Follow-up with me in 7-10 days. Surry 10/325 mg p.o. every 6 hours as needed for pain. Okay to shower in 48 hours. No tub baths or swimming pools times 2 weeks. Referrals: AYLA ROSALES MD [ACTIVE STAFF] - (FOLLOW UP IN 7- 10 DAYS CALL FOR APPOINTMENT) Discharge Diet: As Tolerated Respiratory Treatments at Home: Deep Breathing/Coughing, Incentive Spirometer Discharge Activity: Balance Activity w/Rest Home Care Assistance: None Needed Report the Following to Your Physician Immediately: Shortness of Breath, Nausea, Vomiting, Increase in Pain, Fever over 101 Degrees, Unusual Bleeding, Redness, Swelling, Warmth
--- NOTE | 2018-08-06 20:15 | Operative Report ---
Nonrecallable Operative Report DATE OF SURGERY: 08/04/18 PREOPERATIVE DIAGNOSIS: Right axillary hidradenitis. POSTOPERATIVE DIAGNOSIS: Same OPERATION: Excision of right axillary skin for hidradenitis SURGEON: AYLA ROSALES ANESTHESIA: LMAC TISSUE REMOVED OR ALTERED: Right axillary skin for hidradenitis COMPLICATIONS: None apparent ESTIMATED BLOOD LOSS: 30 cc PROCEDURE: Drains/implants 15 Vincentian round Alex drain. Procedure in detail: After informed consent was obtained, the patient was brought into the operating room and laid in the supine position. The area of the axilla was prepped and draped in a normal sterile fashion. The axillary skin was marked and a 15 blade scalpel was used to excise a willie shaped area of skin beneath the axilla. All of the hairbearing skin of the axilla was surgically excised. The incision was carried down through the subcutaneous tissue, to the axillary fascia. The subcutaneous tissue, skin, and several fistula tracts were all excised. Once the specimen was removed, hemostasis was achieved using Bovie electrocautery. Next, skin flaps were raised. The incision closed more easily in a transverse fashion. The subcutaneous tissue was closed using 2-0 Vicryl suture in simple interrupted fashion. The overlying skin was closed using skin pool. A dressing was placed, and the procedure was concluded. All sponge, instrument, and needle counts were correct x2. Condition: Stable.
== END 2018-08-04 16:25 | disposition home or self-care (01) ==
LOC: SC 12:08
PROVIDERS: ATTEND Surgery
DX: L73.2 Hidradenitis suppurativa (principal); F32.9 Major depressive disorder, single episode, unspecified; F17.210 Nicotine dependence, cigarettes, uncomplicated; Z79.899 Other long term (current) drug therapy
CPT/HCPCS: 36415; 85027; 11450; J2250; J0690; J3010; J3490 ×3; S0020; J2704; 400; C9290

== ENCOUNTER 2019-03-26 17:11 | Emergency (ER) | payer MEDICAID ==
[2019-03-26] MEDS ORDERED: ACETAMINOPHEN 325 MG TABLET PO ONE (17:36)
[2019-03-26] MEDS ORDERED: NORMAL SALINE 1000 ML 1,000 ML IV ONE (17:36)
--- NOTE | 2019-03-26 17:37 | ER Document Report ---
ED Medical Screen (RME) - General Chief Complaint: Abdominal Pain Stated Complaint: POSSIBLE FLU Time Seen by Provider: 03/26/19 17:33 Primary Care Provider: SCOTT PEREZ MD [Primary Care Provider] - Follow up as needed Information source: Patient Notes: Patient presents complaining of upper abdominal pain that started today. Patient does complain of generalized body aches as well. No nausea vomiting cough or urinary symptoms. I have greeted and performed a rapid initial assessment of this patient. A comprehensive ED assessment and evaluation of the patient, analysis of test results and completion of the medical decision making process will be conducted by additional ED providers. TRAVEL OUTSIDE OF THE [place] IN LAST 30 DAYS: No - Related Data Allergies/Adverse Reactions: No Known Allergies Allergy (Verified 07/29/18 11:08) Past Medical History - Social History Chew tobacco use (# tins/day): No Frequency of alcohol use: None Drug Abuse: None - Past Medical History Cardiac Medical History: Denies: Hx Heart Attack, Hx Hypertension Pulmonary Medical History: Denies: Hx Asthma Neurological Medical History: Denies: Hx Cerebrovascular Accident, Hx Seizures Renal/ Medical History: Denies: Hx Peritoneal Dialysis GI Medical History: Denies: Hx Hepatitis, Hx Hiatal Hernia, Hx Ulcer Skin Medical History: Denies Hx MRSA Psychiatric Medical History: Reports: Hx Anxiety, Hx Depression Infectious Medical History: Denies: Hx Hepatitis, Hx MRSA Past Surgical History: Denies: Hx Hysterectomy, Hx Mastectomy, Hx Open Heart Surgery, Hx Pacemaker - Immunizations Hx Diphtheria, Pertussis, Tetanus Vaccination: Yes Physical Exam - Vital signs Vitals: Temp Pulse Resp BP Pulse Ox 100.0 F 112 H 16 137/101 H 99 03/26/19 17:16 03/26/19 17:16 03/26/19 17:16 03/26/19 17:16 03/26/19 17:16 - General General appearance: Appears well, Alert Notes: Upper abdominal tenderness Course - Vital Signs Vital signs: Temp Pulse Resp BP Pulse Ox 100.0 F 117 H 16 142/94 H 99 03/26/19 17:16 03/26/19 17:17 03/26/19 17:16 03/26/19 17:17 03/26/19 17:16 Doctor's Discharge - Discharge Referrals: SCOTT PEREZ MD [Primary Care Provider] - Follow up as needed
--- NOTE | 2019-03-26 17:56 | ER Document Report ---
ED General - General Chief Complaint: Abdominal Pain Stated Complaint: POSSIBLE FLU Time Seen by Provider: 03/26/19 17:33 Primary Care Provider: SCOTT PEREZ MD [Primary Care Provider] - Follow up as needed TRAVEL OUTSIDE OF THE [place] IN LAST 30 DAYS: No - HPI Patient complains to provider of: abdominal pain Notes: 29 y/o previously healthy patient w/ no surgical history presenting to ED for 1- 2 days of worsening epigastric abdominal pain no nausea/vomiting but has had loose liquid stool x4-5 episodes denies urinary or vaginal symptoms endorses loss of appetite and chills denies daily etoh use denies prescription drug use pain does not radiate to the back or to one side or the other - stays in midline upper abdomen no chest pain or sob - Related Data Allergies/Adverse Reactions: No Known Allergies Allergy (Verified 07/29/18 11:08) Past Medical History - General Information source: Patient - Social History Smoking Status: Current Every Day Smoker Chew tobacco use (# tins/day): No Frequency of alcohol use: None Drug Abuse: None Family History: Arthritis, DM, Hyperlipidemia, Hypertension Patient has suicidal ideation: No Patient has homicidal ideation: No - Past Medical History Cardiac Medical History: Denies: Hx Heart Attack, Hx Hypertension Pulmonary Medical History: Denies: Hx Asthma Neurological Medical History: Denies: Hx Cerebrovascular Accident, Hx Seizures Renal/ Medical History: Denies: Hx Peritoneal Dialysis GI Medical History: Denies: Hx Hepatitis, Hx Hiatal Hernia, Hx Ulcer Skin Medical History: Denies Hx MRSA Psychiatric Medical History: Reports: Hx Anxiety, Hx Depression Infectious Medical History: Denies: Hx Hepatitis, Hx MRSA Past Surgical History: Denies: Hx Hysterectomy, Hx Mastectomy, Hx Open Heart Surgery, Hx Pacemaker - Immunizations Hx Diphtheria, Pertussis, Tetanus Vaccination: Yes Review of Systems - Review of Systems Constitutional: No symptoms reported EENT: No symptoms reported Cardiovascular: No symptoms reported Respiratory: No symptoms reported Gastrointestinal: Abdominal pain, Diarrhea, Poor appetite. denies: Abdomen distended, Nausea, Vomiting Genitourinary: No symptoms reported Female Genitourinary: No symptoms reported Musculoskeletal: No symptoms reported Skin: No symptoms reported Hematologic/Lymphatic: No symptoms reported Neurological/Psychological: No symptoms reported Physical Exam - Vital signs Vitals: Temp Pulse Resp BP Pulse Ox 100.0 F 112 H 16 137/101 H 99 03/26/19 17:16 03/26/19 17:16 03/26/19 17:16 03/26/19 17:16 03/26/19 17:16 Interpretation: Normal - General General appearance: Appears well, Alert - HEENT Head: Normocephalic, Atraumatic Eyes: Normal Pupils: PERRL Mucous membranes: Normal Pharynx: Normal Neck: Normal. No: Anterior cervical chain, Posterior cervical chain - Respiratory Respiratory status: No respiratory distress Chest status: Nontender Breath sounds: Normal Chest palpation: Normal - Cardiovascular Rhythm: Regular Heart sounds: Normal auscultation Murmur: No - Abdominal Inspection: Normal Distension: No distension Bowel sounds: Normal Tenderness: Tender. No: Vargas's sign, Guarding - epigastric, Rebound Organomegaly: No organomegaly - Back Back: Normal, Nontender - Extremities General upper extremity: Normal inspection, Nontender, Normal color, Normal ROM, Normal temperature General lower extremity: Normal inspection, Nontender, Normal color, Normal ROM, Normal temperature, Normal weight bearing. No: Jessica's sign - Neurological Neuro grossly intact: Yes Cognition: Normal Orientation: AAOx4 Canadian Coma Scale Eye Opening: Spontaneous Jn Coma Scale Verbal: Oriented Canadian Coma Scale Motor: Obeys Commands Canadian Coma Scale Total: 15 Speech: Normal Motor strength normal: LUE, RUE, LLE, RLE Sensory: Normal - Psychological Associated symptoms: Normal affect, Normal mood - Skin Skin Temperature: Warm Skin Moisture: Dry Skin Color: Normal Course - Re-evaluation Re-evalutation: 03/26/19 18:07 epigastric abdominal pain reproducible on exam diff dx - pancreatitis, biliary disease, gastritis, viral syndrome ivf, antiemetics, analgesics provided 03/26/19 19:16 patient's K has come back low - K rider order flu A positive otherwise labs largely oK US OK recommend tamiflu, zofran, and K supplement w/ pcp follow up for further - Vital Signs Vital signs: Temp Pulse Resp BP Pulse Ox 100.0 F 117 H 16 142/94 H 99 03/26/19 17:16 03/26/19 17:17 03/26/19 17:16 03/26/19 17:17 03/26/19 17:16 - Laboratory Result Diagrams: 03/26/19 17:51 03/26/19 17:51 Laboratory results interpreted by me: 03/26/19 03/26/19 03/26/19 17:51 17:51 17:51 Hgb 10.6 L Hct 33.4 L MCV 77 L MCH 24.6 L MCHC 31.8 L RDW 21.3 H Potassium 2.8 L* Chloride 96 L Carbon Dioxide 31 H BUN 3 L Total Protein 8.6 H Urine Blood MODERATE H - Diagnostic Test Radiology reviewed: Image reviewed, Reports reviewed Discharge - Discharge Clinical Impression: Influenza A, Elevated blood pressure reading, Acute abdominal pain Condition: Stable Disposition: HOME, SELF-CARE Instructions: Abdominal Pain ([facility]), Influenza ([facility]) [id number], Antinausea Medication ([facility]) Additional Instructions: follow up with primary doctor for follow up of low potassium return to the ED with worsening of condition Prescriptions: Ondansetron [Zofran Odt 4 mg Tablet] 1 - 2 tab PO Q4HP PRN #10 tab.rapdis PRN Reason: Potassium Chloride [Klor-Con M20] 20 meq PO DAILY #7 tab.er.prt Oseltamivir Phosphate [Tamiflu 75 mg Capsule] 75 mg PO BID #10 capsule Forms: Elevated Blood Pressure Referrals: SCOTT PEREZ MD [Primary Care Provider] - Follow up as needed
[2019-03-26] MEDS ORDERED: ONDANSETRON HCL INJ/PF 4 MG/2 ML SDV IV ONE (18:02)
[2019-03-26] MEDS ORDERED: KETOROLAC TROMETHAMINE INJ/PF 30 MG/1 ML SDV IV ONE (18:02)
[2019-03-26 18:19] LABS: ABSOLUTE EOSINOPHILS # (AUTO) 0.2 10^3/uL (0.0-0.6); ABSOLUTE LYMPHOCYTES (AUTO) 1.7 10^3/uL (0.5-4.7); ABSOLUTE MONOCYTES (AUTO) 0.8 10^3/uL (0.1-1.4); ABSOLUTE NEUT (AUTO) 7.7 10^3/uL (1.7-8.2); BASOPHILS % (AUTO) 0.3 % (0-2); EOSINOPHILS % (AUTO) 1.5 % (0-6); HEMATOCRIT 33.4 % (36.0-47.0); HEMOGLOBIN 10.6 g/dL (12.0-15.5); LYMPHOCYTES % (AUTO) 16.7 % (13-45); MEAN CORPUSCULAR HEMOGLOBIN 24.6 pg (27.0-33.4); MEAN CORPUSCULAR HGB CONC 31.8 g/dL (32.0-36.0); MEAN CORPUSCULAR VOLUME 77 fl (80-97); MONOCYTES % (AUTO) 7.2 % (3-13); PLATELET COUNT 432 10^3/uL (150-450); RED BLOOD COUNT 4.32 10^6/uL (3.72-5.28); RED CELL DISTRIBUTION WIDTH 21.3 % (11.5-14.0); SEGMENTED NEUTROPHILS % (AUTO) 74.3 % (42-78); TOTAL CELLS COUNTED % (AUTO) 100 %; WHITE BLOOD COUNT 10.4 10^3/uL (4.0-10.5)
[2019-03-26 18:29] LABS: APPEARANCE,URINE CLEAR; BILIRUBIN,URINE NEGATIVE (NEGATIVE); COLOR,URINE YELLOW; GLUCOSE, URINE NEGATIVE (NEGATIVE); KETONES,URINE NEGATIVE (NEGATIVE); LEUKOCYTE ESTERASE,URINE NEGATIVE (NEGATIVE); NITRITE,URINE NEGATIVE (NEGATIVE); PROTEIN,URINE NEGATIVE (NEGATIVE); URINE SPECIFIC GRAVITY 1.019; UROBILINOGEN,URINE NEGATIVE mg/dL (<2.0)
[2019-03-26 18:38] LABS: ALBUMIN 4.5 g/dL (3.5-5.0); ALKALINE PHOSPHATASE 81 U/L (38-126); ANION GAP 11 (5-19); ASPARTATE AMINO TRANSFERASE 21 U/L (14-36); BILIRUBIN,DIRECT 0.1 mg/dL (0.0-0.4); BILIRUBIN,TOTAL 0.6 mg/dL (0.2-1.3); BLOOD UREA NITROGEN 3 mg/dL (7-20); CALCIUM 9.3 mg/dL (8.4-10.2); CARBON DIOXIDE 31 mmol/L (22-30); CHLORIDE 96 mmol/L (98-107); GLUCOSE 90 mg/dL (75-110); TOTAL PROTEIN 8.6 g/dL (6.3-8.2)
[2019-03-26 18:40] LABS: A TYPE INFLUENZA AG POSITIVE (NEGATIVE); B INFLUENZA AG NEGATIVE (NEGATIVE)
[2019-03-26 18:43] LABS: POTASSIUM 2.8 mmol/L (3.6-5.0)
[2019-03-26] MEDS ORDERED: POTASSI CL 20 MEQ/50 ML RIDER 20 MEQ/50 ML RTUPB IV ONE (18:51)
--- NOTE | 2019-03-26 18:54 | RADIOLOGY REPORT (SQ) ---
EXAM DESCRIPTION: U/S ABDOMEN LIMITED W/O DOP COMPLETED DATE/TIME: 03/26/2019 6:35 pm REASON FOR STUDY: upper abd pain COMPARISON: Right upper quadrant ultrasound 06/05/2015. TECHNIQUE: Dynamic and static grayscale images acquired of the abdomen and recorded on PACS. Tori murguia selected color Doppler and spectral images recorded. LIMITATIONS: None. FINDINGS: PANCREAS: No masses. Visualized pancreatic duct normal caliber. LIVER: No masses. Echotexture normal. LIVER VASCULATURE: Normal directional flow of the main portal vein and hepatic veins. GALLBLADDER: No stones. Normal wall thickness. No pericholecystic fluid. ULTRASOUND-DETECTED MILLER'S SIGN: Negative. INTRAHEPATIC DUCTS AND COMMON DUCT: CBD and intrahepatic ducts normal caliber. No filling defects. INFERIOR VENA CAVA: Normal flow. AORTA: No aneurysm. RIGHT KIDNEY: Normal size. Normal echogenicity. No solid or suspicious masses. No hydronephrosis. No calcifications. PERITONEAL AND RIGHT PLEURAL SPACE: No ascites or effusions. OTHER: No other significant findings. IMPRESSION: NORMAL RIGHT UPPER QUADRANT ULTRASOUND. TECHNICAL DOCUMENTATION: JOB ID: [id number]- All Rights Reserved Reading location - IP/workstation name: [email or web address]
[2019-03-26 22:00] VITALS: BP 110/80
== END 2019-03-26 22:00 | disposition home or self-care (01) ==
LOC: ER 17:11
DX: J10.1 Influenza due to other identified influenza virus with other respiratory manifestations (principal); R10.13 Epigastric pain; R10.819 Abdominal tenderness, unspecified site; R19.7 Diarrhea, unspecified; R63.0 Anorexia; R68.83 Chills (without fever); R03.0 Elevated blood-pressure reading, without diagnosis of hypertension; F17.200 Nicotine dependence, unspecified, uncomplicated
CPT/HCPCS: 99284; 96361; 96375; 96365; 96366; 36415; 83690; 84703; 85025; 80053; 81001; 87804; 76705; J3490; J1885; J2405; J3480; J7030

== ENCOUNTER 2019-07-09 00:57 | Emergency (ER) | payer MEDICAID ==
[2019-07-09 02:01] LABS: ABSOLUTE EOSINOPHILS # (AUTO) 0.3 10^3/uL (0.0-0.6); ABSOLUTE LYMPHOCYTES (AUTO) 2.7 10^3/uL (0.5-4.7); ABSOLUTE MONOCYTES (AUTO) 0.7 10^3/uL (0.1-1.4); ABSOLUTE NEUT (AUTO) 6.4 10^3/uL (1.7-8.2); BASOPHILS % (AUTO) 0.5 % (0-2); EOSINOPHILS % (AUTO) 2.5 % (0-6); HEMATOCRIT 30.2 % (36.0-47.0); HEMOGLOBIN 9.9 g/dL (12.0-15.5); LYMPHOCYTES % (AUTO) 26.9 % (13-45); MEAN CORPUSCULAR HEMOGLOBIN 24.2 pg (27.0-33.4); MEAN CORPUSCULAR HGB CONC 32.9 g/dL (32.0-36.0); MEAN CORPUSCULAR VOLUME 74 fl (80-97); MONOCYTES % (AUTO) 6.4 % (3-13); PLATELET COUNT 432 10^3/uL (150-450); RED CELL DISTRIBUTION WIDTH 20.7 % (11.5-14.0); SEGMENTED NEUTROPHILS % (AUTO) 63.7 % (42-78); TOTAL CELLS COUNTED % (AUTO) 100 %; WHITE BLOOD COUNT 10.1 10^3/uL (4.0-10.5)
[2019-07-09 02:09] LABS: APPEARANCE,URINE SLIGHTLY-CLOUDY; BILIRUBIN,URINE NEGATIVE (NEGATIVE); COLOR,URINE YELLOW; GLUCOSE, URINE NEGATIVE (NEGATIVE); KETONES,URINE TRACE mg/dL (NEGATIVE); LEUKOCYTE ESTERASE,URINE NEGATIVE (NEGATIVE); NITRITE,URINE NEGATIVE (NEGATIVE); PROTEIN,URINE 30 mg/dL (NEGATIVE); URINE SPECIFIC GRAVITY 1.026
[2019-07-09 02:18] LABS: ALBUMIN 4.2 g/dL (3.5-5.0); ALKALINE PHOSPHATASE 81 U/L (38-126); ANION GAP 8 (5-19); ASPARTATE AMINO TRANSFERASE 21 U/L (14-36); BILIRUBIN,TOTAL 0.3 mg/dL (0.2-1.3); BLOOD UREA NITROGEN 7 mg/dL (7-20); CALCIUM 9.5 mg/dL (8.4-10.2); CARBON DIOXIDE 32 mmol/L (22-30); CHLORIDE 100 mmol/L (98-107); GLUCOSE 92 mg/dL (75-110); POTASSIUM 3.8 mmol/L (3.6-5.0); TOTAL PROTEIN 7.8 g/dL (6.3-8.2)
--- NOTE | 2019-07-09 07:02 | ER Document Report ---
ED General - General Chief Complaint: Abdominal Pain Stated Complaint: ABDOMINAL PAIN Time Seen by Provider: 07/09/19 06:35 Primary Care Provider: SCOTT PEREZ MD [Primary Care Provider] - Follow up as needed Notes: 29-year-old woman with a positive home tests and concerns that she wants to be checked out. Apparently her period is late and her test was positive. Her last was a high risk and born at 6 months premature. She is concerned that she may be a high risk . She denies bleeding or cramping at this time. Labs were performed prior to her being seen reveals a low quant with a positive urine. I explained to the patient she is very early in her . She insists on having an ultrasound performed. TRAVEL OUTSIDE OF THE [place] IN LAST 30 DAYS: No - Related Data Allergies/Adverse Reactions: No Known Allergies Allergy (Verified 07/29/18 11:08) Home Medications: antidepressants. xanax Past Medical History - Social History Smoking Status: Current Every Day Smoker Chew tobacco use (# tins/day): No Frequency of alcohol use: Occasional Drug Abuse: None Family History: Arthritis, DM, Hyperlipidemia, Hypertension Patient has suicidal ideation: No Patient has homicidal ideation: No - Past Medical History Cardiac Medical History: Denies: Hx Heart Attack, Hx Hypertension Pulmonary Medical History: Denies: Hx Asthma Neurological Medical History: Denies: Hx Cerebrovascular Accident, Hx Seizures Renal/ Medical History: Denies: Hx Peritoneal Dialysis GI Medical History: Denies: Hx Hepatitis, Hx Hiatal Hernia, Hx Ulcer Skin Medical History: Denies Hx MRSA Psychiatric Medical History: Reports: Hx Anxiety, Hx Depression Infectious Medical History: Denies: Hx Hepatitis, Hx MRSA Past Surgical History: Denies: Hx Hysterectomy, Hx Mastectomy, Hx Open Heart Surgery, Hx Pacemaker - Immunizations Hx Diphtheria, Pertussis, Tetanus Vaccination: Yes Review of Systems - Review of Systems Notes: Constitutional: Negative for fever. HENT: Negative for sore throat. Eyes: Negative for visual changes. Cardiovascular: Negative for chest pain. Respiratory: Negative for shortness of breath. Gastrointestinal: Negative for abdominal pain, vomiting or diarrhea. Genitourinary: Negative for dysuria. Musculoskeletal: Negative for back pain. Skin: Negative for rash. Neurological: Negative for headaches, weakness or numbness. 10 point ROS negative except as marked above and in HPI. Physical Exam - Vital signs Vitals: Temp Pulse Resp BP Pulse Ox 98.3 F 97 20 145/92 H 98 07/09/19 01:01 07/09/19 01:01 07/09/19 01:01 07/09/19 01:01 07/09/19 01:01 - Notes Notes: PHYSICAL EXAMINATION: Physical Exam: General: Well-nourished well-developed 29-year-old woman in no acute distress HEENT: NC/AT, pupils equal round and reactive to light, MM moist,nares clear, Neck: supple, no adenopathy, no masses. Lungs: clear, no wheezing, no rales no rhonchi CVS: Regular rate and rhythm no murmur gallop or rub Abdomen: Soft active nontender, no masses, no hepatosplenomegaly Ext: No edema clubbing or cyanosis. Neuro: Alert and responsive, moving all 4 extremities on command, cranial nerves intact. Skin: Intact no open lesions, no rash PSYCH: Normal mood, normal affect. Course - Re-evaluation Re-evalutation: 07/09/19 08:57 An ultrasound was performed, no intrauterine or extrauterine is i dentified. I have explained this to the patient and told her that she needs to follow-up with her outpatient physician in 2 to 3 weeks for recheck at that time. She does have the option to return to the emergency department if she has heavy bleeding or other concerns. Patient acknowledges understanding of this plan and states she is ready to be discharged. - Vital Signs Vital signs: Temp Pulse Resp BP Pulse Ox 98.4 F 100 20 134/84 H 100 07/09/19 05:13 07/09/19 05:13 07/09/19 05:13 07/09/19 05:13 07/09/19 05:13 - Laboratory Result Diagrams: 07/09/19 01:55 07/09/19 01:55 Laboratory results interpreted by me: 07/09/19 07/09/19 07/09/19 01:55 01:55 01:55 Hgb 9.9 L Hct 30.2 L MCV 74 L MCH 24.2 L RDW 20.7 H Carbon Dioxide 32 H Beta HCG, Quant 92.62 H Urine Protein 30 H Urine Ketones TRACE H Urine Blood SMALL H Urine Urobilinogen 2.0 H Discharge - Discharge Clinical Impression: Qualifiers: Weeks of gestation: less than 8 weeks Qualified Code(s): Z3A.01 - Less than 8 weeks gestation of Condition: Good Disposition: HOME, SELF-CARE Additional Instructions: You have been diagnosed with a very early , the ultrasound unable to identify any intrauterine or extrauterine signs of . Your quantitative hCG is also very low and it is suggested that you follow-up with a primary doctor in 2 to 3 weeks. If you having pain, heavy bleeding, or other symptoms please feel free to return to the emergency department for a follow-up. Referrals: SCOTT PEREZ MD [Primary Care Provider] - Follow up as needed
--- NOTE | 2019-07-09 08:33 | RADIOLOGY REPORT (SQ) ---
EXAM DESCRIPTION: U/S OB TRANSVAGINAL W/O DOP COMPLETED DATE/TIME: 07/09/2019 7:53 am REASON FOR STUDY: with pelvic pain COMPARISON: Ob ultrasound 02/28/2013 TECHNIQUE: Endovaginal static and realtime grayscale images acquired of the pelvis. Additional selec ten spectral and color Doppler images recorded. All images stored on PACs. CLINICAL AGE: Last menses 05/26/2019 [facility] LIMITATIONS: None. FINDINGS: UTERUS: No visualized intrauterine . Uterus is 8 x 4 x 6 cm in size. Endometria l stripe 7 mm in thickness RIGHT ADNEXA: Normal ovary with normal vascular flow. Right ovary 3.6 x 2.3 by 4.2 cm. No adnexal free fluid. No adnexal masses. LEFT ADNEXA: Ovary not identified due to poor acoustical window. No adnexal free fluid. No adnexal masses. FREE FLUID: None. OTHER: Report discussed with Dr Baldwin IMPRESSION: NO VISUALIZED INTRA- OR EXTRAUTERINE . bHCG LEVEL TOO LOW TO EXPECT VISUALIZATION OF . ECTOPIC CANNOT BE EXCLUDED. FOLLOW-UP ULTRASOUND AND SERIAL BHCG LEVELS STRONGLY RECOMMENDED TO ACCURATELY ASSESS STATU S. TECHNICAL DOCUMENTATION: JOB ID: [id number] [employer]- All Rights Reserved Reading location - IP/workstation name: [email or web address]
[2019-07-09 09:09] VITALS: BP 120/78
== END 2019-07-09 09:10 | disposition home or self-care (01) ==
LOC: ER 00:57
DX: O99.331 Smoking (tobacco) complicating pregnancy, first trimester (principal); F17.200 Nicotine dependence, unspecified, uncomplicated; O99.341 Other mental disorders complicating pregnancy, first trimester; F41.9 Anxiety disorder, unspecified; F32.9 Major depressive disorder, single episode, unspecified; Z3A.01 Less than 8 weeks gestation of pregnancy; Z79.899 Other long term (current) drug therapy
CPT/HCPCS: 36415; 76817; 80053; 81001; 83690; 84702; 85025; 99284

== ENCOUNTER 2019-07-16 09:17 | Emergency (ER) | payer MEDICAID ==
--- NOTE | 2019-07-16 10:16 | ER Document Report ---
ED Medical Screen (RME) - General Chief Complaint: Vag Bleeding, +preg <12wks Stated Complaint: ABDOMINAL PAIN Time Seen by Provider: 07/16/19 10:07 Primary Care Provider: SCOTT PEREZ MD [Primary Care Provider] - Follow up as needed Notes: Patient is a G2, P1 29-year-old female who presents to the emergency department with vaginal bleeding. Patient states that when she went to go wipe she saw some blood on the toilet paper. Last menstrual cycle was May 19. She was seen on the , but was told that she was too early to show anything. Patient states that she has a little bit of pressure, but this is normal for her. Patient is Rh+ per previous visits. RhoGam not indicated. Soft, mildly tender mid lower abdomen. I have greeted and performed a rapid initial assessment of this patient. A comprehensive ED assessment and evaluation of the patient, analysis of test results and completion of medical decision making process will be conducted by an additional ED providers. TRAVEL OUTSIDE OF THE [place] IN LAST 30 DAYS: No - Related Data Allergies/Adverse Reactions: No Known Allergies Allergy (Verified 07/16/19 10:02) Past Medical History - General Last Menstrual Period: 05/19/19 - Social History Chew tobacco use (# tins/day): No Frequency of alcohol use: None Drug Abuse: None - Past Medical History Cardiac Medical History: Denies: Hx Heart Attack, Hx Hypertension Pulmonary Medical History: Denies: Hx Asthma Neurological Medical History: Denies: Hx Cerebrovascular Accident, Hx Seizures Renal/ Medical History: Denies: Hx Peritoneal Dialysis GI Medical History: Denies: Hx Hepatitis, Hx Hiatal Hernia, Hx Ulcer Skin Medical History: Denies Hx MRSA Psychiatric Medical History: Reports: Hx Anxiety, Hx Depression Infectious Medical History: Denies: Hx Hepatitis, Hx MRSA Past Surgical History: Denies: Hx Hysterectomy, Hx Mastectomy, Hx Open Heart Surgery, Hx Pacemaker - Immunizations Hx Diphtheria, Pertussis, Tetanus Vaccination: Yes Physical Exam - Vital signs Vitals: Temp Pulse Resp BP Pulse Ox 98.5 F 105 H 18 123/66 99 07/16/19 09:21 07/16/19 09:21 07/16/19 09:21 07/16/19 09:21 07/16/19 09:21 Course - Vital Signs Vital signs: Temp Pulse Resp BP Pulse Ox 98.5 F 105 H 18 123/66 99 07/16/19 09:21 07/16/19 09:21 07/16/19 09:21 07/16/19 09:21 07/16/19 09:21 Doctor's Discharge - Discharge Referrals: SCOTT PEREZ MD [Primary Care Provider] - Follow up as needed
[2019-07-16 10:39] LABS: ABSOLUTE BASOPHILS # (AUTO) 0.1 10^3/uL (0.0-0.2); ABSOLUTE EOSINOPHILS # (AUTO) 0.2 10^3/uL (0.0-0.6); ABSOLUTE LYMPHOCYTES (AUTO) 2.1 10^3/uL (0.5-4.7); ABSOLUTE MONOCYTES (AUTO) 1.2 10^3/uL (0.1-1.4); ABSOLUTE NEUT (AUTO) 6.1 10^3/uL (1.7-8.2); BASOPHILS % (AUTO) 0.5 % (0-2); EOSINOPHILS % (AUTO) 2.4 % (0-6); HEMATOCRIT 32.1 % (36.0-47.0); HEMOGLOBIN 10.2 g/dL (12.0-15.5); LYMPHOCYTES % (AUTO) 21.8 % (13-45); MEAN CORPUSCULAR HEMOGLOBIN 23.6 pg (27.0-33.4); MEAN CORPUSCULAR HGB CONC 31.9 g/dL (32.0-36.0); MEAN CORPUSCULAR VOLUME 74 fl (80-97); MONOCYTES % (AUTO) 12.5 % (3-13); PLATELET COUNT 445 10^3/uL (150-450); RED BLOOD COUNT 4.34 10^6/uL (3.72-5.28); RED CELL DISTRIBUTION WIDTH 21.1 % (11.5-14.0); SEGMENTED NEUTROPHILS % (AUTO) 62.8 % (42-78); TOTAL CELLS COUNTED % (AUTO) 100 %; WHITE BLOOD COUNT 9.7 10^3/uL (4.0-10.5)
--- NOTE | 2019-07-16 11:02 | RADIOLOGY REPORT (SQ) ---
EXAM DESCRIPTION: U/S OB TRANSVAG W/DOPPLER COMPLETED DATE/TIME: 07/16/2019 10:46 am REASON FOR STUDY: vaginal bleeding COMPARISON: None. TECHNIQUE: Transvaginal static and realtime grayscale images acquired of the pelvis. Additional sonali cted spectral and color Doppler images recorded. All images stored on PACs. CLINICAL AGE: 8 week 2 day. bHCG: Pending. LIMITATIONS: None. FINDINGS: UTERUS: No masses. No anomalies. GESTATIONAL SAC: Questionable faint focal fluid collection in the fundus. YOLK SAC: No. POLE: None present. RIGHT ADNEXA: Normal ovary with normal vascular flow. No adnexal free fluid. No adnexal masses. LEFT ADNEXA: Normal ovary with normal vascular flow. No adnexal free fluid. 2.2 cm cyst. FREE FLUID: None. OTHER: No other significant finding. IMPRESSION: POSSIBLE EARLY INTRAUTERINE . BHCG LEVEL NOT AVAILABLE FOR CORRELATION WITH US FINDINGS. CONSIDER F/U BHCG AND/OR ULTRASOUND FOR VERIFICATION AND TO EXCLUDE ECTOPIC . Trimester of : First trimester - 0 to 13 weeks. TECHNICAL DOCUMENTATION: JOB ID: [id number] [employer]- All Rights Reserved Reading location - IP/workstation name: [email or web address]
--- NOTE | 2019-07-16 11:02 | ER Document Report ---
ED GI/ - General Chief Complaint: Vag Bleeding, +preg <12wks Stated Complaint: ABDOMINAL PAIN Time Seen by Provider: 07/16/19 10:07 Primary Care Provider: SCOTT PEREZ MD [Primary Care Provider] - Follow up as needed Notes: CHIEF COMPLAINT: Vaginal spotting today HPI: 29-year-old female presenting for vaginal spotting today. Patient states she was seen weeks ago for related complaints. States she had an ultrasound but they "did not see anything". Patient has been doing fine, has an appointment in 8 days with her [facility]. Patient states "I just wanted to come get checked out today because I saw some spotting earlier today. I am not even spotting now currently". Patient denies pelvic pain. Patient denies back pain. She denies fever nausea vomiting ROS: See HPI - all other systems were reviewed and are otherwise negative Constitutional: no fever or recent illness Eyes: no drainage, no blurred vision ENT: no runny nose, no sore throat Cardiovascular: no chest pain Resp: no SOB, no cough GI: no vomiting, no diarrhea : no dysuria, no vaginal discharge, vaginal spotting Integumentary: no rash Allergy: no hives Musculoskeletal: no extremity pain or swelling Neurological: no numbness/tingling, no weakness MEDICATIONS: I agree with the patient medications as charted by the RN. ALLERGIES: I agree with the allergies as charted by the RN. PAST MEDICAL HISTORY/PAST SURGICAL HISTORY: Reviewed and agree as charted by RN. SOCIAL HISTORY: Reviewed and agree as charted by RN. FAMILY HISTORY: No significant familial comorbid conditions directly related to patient complaint EXAM: Reviewed vital signs as charted by RN. CONSTITUTIONAL: Alert and oriented and responds appropriately to questions. Well-appearing; well-nourished HEAD: Normocephalic; atraumatic EYES: PERRL; Conjunctivae clear, sclerae non-icteric ENT: normal nose; no rhinorrhea; moist mucous membranes; pharynx without lesions noted NECK: Supple without meningismus; non-tender; no cervical lymphadenopathy, no masses CARD: RRR; no murmurs, no clicks, no rubs, no gallops; symmetric distal pulses RESP: Normal chest excursion without splinting or tachypnea; breath sounds clear and equal bilaterally; no wheezes, no rhonchi, no rales, ABD/GI: Normal bowel sounds; non-distended; soft, non-tender, no rebound, no guarding; no palpable organomegaly or masses : Patient denies pelvic exam or testing BACK: The back appears normal and is non-tender to palpation, there is no CVA tenderness EXT: Normal ROM in all joints; non-tender to palpation; no cyanosis, no effusions, no edema SKIN: Normal color for age and race; warm; dry; good turgor; no acute lesions noted NEURO: Moves all extremities equally; Motor and sensory function intact PSYCH: The patient's mood and manner are appropriate. Grooming and personal hygiene are appropriate. MDM: 29-year-old female presenting to the emergency department essentially requesting an ultrasound to recheck her . States she had some vaginal spotting after wiping when urinating and has no vaginal spotting now. She has no pelvic pain complaints. Has not yet followed up with [facility] since her last visit here several weeks ago. States she has an appointment in another week. Did discuss pelvic exam, STD and wet prep testing and she declines at this time. Aware that we cannot rule out STDs, vaginitis or other sources of bleeding. Can also not assess cervix, uterine size or for PID or bleeding. She indicates she is aware of this but prefers to follow-up with her [facility]. She has apparently already had lab work and ultrasound done via the triage process will await results and disposition TRAVEL OUTSIDE OF THE [place] IN LAST 30 DAYS: No - Related Data Allergies/Adverse Reactions: No Known Allergies Allergy (Verified 07/16/19 10:02) Past Medical History - General Last Menstrual Period: 05/19/19 - Social History Smoking Status: Current Every Day Smoker Chew tobacco use (# tins/day): No Frequency of alcohol use: None Drug Abuse: None Family History: Arthritis, DM, Hyperlipidemia, Hypertension Patient has suicidal ideation: No Patient has homicidal ideation: No - Past Medical History Cardiac Medical History: Denies: Hx Heart Attack, Hx Hypertension Pulmonary Medical History: Denies: Hx Asthma Neurological Medical History: Denies: Hx Cerebrovascular Accident, Hx Seizures Renal/ Medical History: Denies: Hx Peritoneal Dialysis GI Medical History: Denies: Hx Hepatitis, Hx Hiatal Hernia, Hx Ulcer Skin Medical History: Denies Hx MRSA Psychiatric Medical History: Reports: Hx Anxiety, Hx Depression Infectious Medical History: Denies: Hx Hepatitis, Hx MRSA Past Surgical History: Denies: Hx Hysterectomy, Hx Mastectomy, Hx Open Heart Surgery, Hx Pacemaker - Immunizations Hx Diphtheria, Pertussis, Tetanus Vaccination: Yes Physical Exam - Vital signs Vitals: Temp Pulse Resp BP Pulse Ox 98.5 F 105 H 18 123/66 99 07/16/19 09:21 07/16/19 09:21 07/16/19 09:21 07/16/19 09:21 07/16/19 09:21 Course - Re-evaluation Re-evalutation: 07/16/19 11:29 Patient beta-hCG is approximately 1376. Possible intrauterine gestation seen on ultrasound. Patient again declines pelvic exam cannot assess of bleeding although she states she has stopped bleeding at this time. Patient is aware we cannot rule out pelvic infection, miscarriage, vaginitis. Will discharge home with bleeding instructions follow-up [facility] - Vital Signs Vital signs: Temp Pulse Resp BP Pulse Ox 98.5 F 105 H 18 123/66 99 07/16/19 09:21 07/16/19 09:21 07/16/19 09:21 07/16/19 09:21 07/16/19 09:21 - Laboratory Result Diagrams: 07/16/19 10:15 Laboratory results interpreted by me: 07/16/19 07/16/19 07/16/19 10:15 10:15 10:15 Hgb 10.2 L Hct 32.1 L MCV 74 L MCH 23.6 L MCHC 31.9 L RDW 21.1 H Beta HCG, Quant 1363.70 H Urine Protein 30 H Urine Blood MODERATE H Urine Urobilinogen 2.0 H Discharge - Discharge Clinical Impression: Threatened miscarriage in early Condition: Stable Disposition: HOME, SELF-CARE Additional Instructions: Follow-up with your [facility] for further evaluation and treatment call for appointment. Return to the emergency department if you have vaginal bleeding where you are saturating greater than 1 pad per hour for 2 consecutive hours. You declined pelvic exam today, be aware that we could not rule out an infection as a source of your vaginal spotting today. Referrals: SCOTT PEREZ MD [Primary Care Provider] - Follow up as needed
[2019-07-16 11:05] LABS: APPEARANCE,URINE SLIGHTLY-CLOUDY; BILIRUBIN,URINE NEGATIVE (NEGATIVE); COLOR,URINE YELLOW; GLUCOSE, URINE NEGATIVE (NEGATIVE); KETONES,URINE NEGATIVE (NEGATIVE); LEUKOCYTE ESTERASE,URINE NEGATIVE (NEGATIVE); NITRITE,URINE NEGATIVE (NEGATIVE); PROTEIN,URINE 30 mg/dL (NEGATIVE); URINE SPECIFIC GRAVITY 1.024
[2019-07-16 11:54] VITALS: BP 110/69
== END 2019-07-16 11:55 | disposition home or self-care (01) ==
LOC: ER 09:17
DX: O20.0 Threatened abortion (principal); O99.330 Smoking (tobacco) complicating pregnancy, unspecified trimester; Z3A.00 Weeks of gestation of pregnancy not specified
CPT/HCPCS: 36415; 76817; 81001; 83690; 84702; 85025; 93976; 99284

== ENCOUNTER 2019-11-07 21:12 | Emergency (ER) | payer MEDICAID ==
[2019-11-07] MEDS ORDERED: CEPHALEXIN 500 MG CAPSULE PO ONE (22:02)
--- NOTE | 2019-11-07 22:02 | ER Document Report ---
HPI - HPI Patient complains to provider of: Insect bite Time Seen by Provider: 11/07/19 21:56 Onset: Yesterday Onset/Duration: Worse Quality of pain: Achy Pain Level: 2 Context: Patient states that she received an insect bite to the right upper arm yesterday. Patient states area has become increasingly erythematous, tender and swollen. Patient denies any fever. Patient is currently 21 weeks . Associated Symptoms: denies: Fever Exacerbated by: Movement Relieved by: Denies Similar symptoms previously: No Recently seen / treated by doctor: No - ROS ROS below otherwise negative: Yes Systems Reviewed and Negative: Yes All other systems reviewed and negative - CONSTITUTIONAL Constitutional: DENIES: Fever, Chills - GASTROINTESTINAL Gastrointestinal: DENIES: Nausea - REPRODUCTIVE Reproductive: REPORTS: : - MUSCULOSKELETAL Musculoskeletal: REPORTS: Extremity pain - Right upper arm, Swelling - DERM Skin Color: Erythema Skin Problems: None Past Medical History - General Information source: Patient - Social History Smoking Status: Never Smoker Frequency of alcohol use: None Drug Abuse: None Lives with: Family Family History: Arthritis, DM, Hyperlipidemia, Hypertension - Past Medical History Cardiac Medical History: Denies: Hx Heart Attack, Hx Hypertension Pulmonary Medical History: Denies: Hx Asthma Neurological Medical History: Denies: Hx Cerebrovascular Accident, Hx Seizures Renal/ Medical History: Denies: Hx Peritoneal Dialysis GI Medical History: Denies: Hx Hepatitis, Hx Hiatal Hernia, Hx Ulcer Skin Medical History: Denies Hx MRSA Psychiatric Medical History: Reports: Hx Anxiety, Hx Depression Infectious Medical History: Denies: Hx Hepatitis, Hx MRSA Surgical Hx: Negative Past Surgical History: Denies: Hx Hysterectomy, Hx Mastectomy, Hx Open Heart Surgery, Hx Pacemaker - Immunizations Hx Diphtheria, Pertussis, Tetanus Vaccination: Yes Vertical Provider Document - CONSTITUTIONAL Agree With Documented VS: Yes Exam Limitations: No Limitations General Appearance: WD/WN, No Apparent Distress - INFECTION CONTROL TRAVEL OUTSIDE OF THE [place] IN LAST 30 DAYS: No - HEENT HEENT: Atraumatic, Normal ENT Exam, Normocephalic - NECK Neck: Normal Inspection, Supple - RESPIRATORY Respiratory: No Respiratory Distress, Wheezing - CARDIOVASCULAR Cardiovascular: Regular Rhythm, No Murmur, Tachycardia - HR 104 - BACK Back: Normal Inspection - MUSCULOSKELETAL/EXTREMETIES Musculoskeletal/Extremeties: MAEW, FROM, Tender - Tenderness to posterior aspect of the right upper arm - NEURO Level of Consciousness: Awake, Alert, Appropriate Motor/Sensory: No Motor Deficit - DERM Integumentary: Warm, Dry. negative: Abscess Notes: Patient with erythema to the posterior aspect of right upper arm with calor, area is tender to touch. Patient does have a central lesion consistent with reported history of insect bite. Course - Re-evaluation Re-evalutation: 11/07/19 22:00 Patient with insect bite yesterday that has since become tender, erythematous and warm to the touch. Will cover with antibiotics in case of developing cellulitis at this time. Good return precautions discussed with patient. - Vital Signs Vital signs: Temp Pulse Resp BP Pulse Ox 99.6 F 118 H 18 111/73 99 11/07/19 21:20 11/07/19 21:20 11/07/19 21:20 11/07/19 21:20 11/07/19 21:20 Discharge - Discharge Clinical Impression: Insect bite Qualifiers: Encounter type: initial encounter Site of insect bite: upper arm Laterality: right Qualified Code(s): S40.861A - Insect bite (nonvenomous) of right upper arm, initial encounter Cellulitis Qualifiers: Site of cellulitis: extremity Site of cellulitis of extremity: upper extremity Laterality: right Qualified Code(s): L03.113 - Cellulitis of right upper limb Condition: Stable Disposition: HOME, SELF-CARE Instructions: Cephalexin ([facility]), Topical Steroid Cream or Ointment ([facility]), S wollen Insect Bite or Sting ([facility]) Additional Instructions: Return immediately for any new or worsening symptoms: Fever, redness, streaks or any concerning new symptoms Followup with your primary care provider, call tomorrow to make a followup appointment Prescriptions: Triamcinolone Acetonide [Aristocort 0.1% Cream] 1 applic TP TID #60 gm Cephalexin Monohydrate [Keflex 500 mg Capsule] 500 mg PO Q6H 5 Days #20 capsule Referrals: SCOTT PEREZ MD [Primary Care Provider] - Follow up as needed
[2019-11-07 22:14] VITALS: BP 112/72
== END 2019-11-07 22:10 | disposition home or self-care (01) ==
LOC: ER 21:12
DX: S40.861A Insect bite (nonvenomous) of right upper arm, initial encounter (principal); L03.113 Cellulitis of right upper limb; W57.XXXA Bitten or stung by nonvenomous insect and other nonvenomous arthropods, initial encounter; Z3A.21 21 weeks gestation of pregnancy
CPT/HCPCS: 99281

== ENCOUNTER 2020-03-13 11:18 | Outpatient (CLI) | payer MEDICAID ==
[2020-03-13 11:54] LABS: APPEARANCE,URINE CLOUDY; BILIRUBIN,URINE NEGATIVE (NEGATIVE); COLOR,URINE YELLOW; GLUCOSE, URINE NEGATIVE (NEGATIVE); KETONES,URINE NEGATIVE (NEGATIVE); LEUKOCYTE ESTERASE,URINE SMALL (NEGATIVE); NITRITE,URINE NEGATIVE (NEGATIVE); PROTEIN,URINE NEGATIVE (NEGATIVE); URINE SPECIFIC GRAVITY 1.012
[2020-03-13 12:18] LABS: URINE AMPHETAMINES SCREEN NEGATIVE; URINE BARBITURATES SCREEN NEGATIVE; URINE BENZODIAZEPINES SCREEN NEGATIVE; URINE COCAINE SCREEN NEGATIVE; URINE MARIJUANA (THC) SCREEN NEGATIVE; URINE METHADONE SCREEN NEGATIVE; URINE PHENCYCLIDINE SCREEN NEGATIVE
--- NOTE | 2020-03-13 13:08 | RADIOLOGY REPORT (SQ) ---
EXAM DESCRIPTION: U/S PROFILE W/O STRESS IMAGES COMPLETED DATE/TIME: 03/13/2020 12:53 pm REASON FOR STUDY: BPP COMPARISON: None. TECHNIQUE: Limited sanches-scale realtime and static images of the fetus to measure specified parameter s. LIMITATIONS: None. FINDINGS: HEART RATE: 137 beats per minute. EDYTA: 14.2 cm cm. MVP: 5.53 cm. BREATHING MOVEMENT: 2 points. MOVEMENT: 2 points. POSTURE AND TONE: 2 points. QUALITATIVE EDYTA: 2 points. OTHER: Cephalic presentation. IMPRESSION: BIOPHYSICAL PROFILE: 01/19. Trimester of : Third - 28 weeks to delivery COMMENT: BREATHING MOVEMENTS: 2 POINTS: PRESENT 0 POINTS: ABSENT MOTION: 2 POINTS: PRESENT 0 POINTS: ABSENT TONE: 2 POINTS: PRESENT 0 POINTS: ABSENT AMNIOTIC FLUID VOLUME: 2 POINTS: LARGEST POCKET GREATER THAN 2 CM DEPTH. 0 POINTS: NO POCKET OF 2 CM. TECHNICAL DOCUMENTATION: JOB ID: [id number] 2010 [employer]- All Rights Reserved Reading location - IP/workstation name: [email or web address]
== END 2020-03-13 13:20 | disposition home or self-care (01) ==
LOC: LC 11:18
PROVIDERS: ATTEND Obstetrics & Gynecology
DX: O36.8130 Decreased fetal movements, third trimester, not applicable or unspecified (principal); Z3A.39 39 weeks gestation of pregnancy
CPT/HCPCS: 59025; 76819; 80307; 81005

== ENCOUNTER 2020-03-14 17:17 | Outpatient (CLI) | payer MEDICAID ==
--- NOTE | 2020-03-14 17:27 | Non Stress Test Report ---
Non Stress Test Datetime Report Generated by CPN: 03/14/2020 17:26 DEMOGRAPHIC EGA NST: 39.0 VITAL SIGNS Temperature - NST: 99.4 Pulse - NST: 99 RESP - NST: 17 URINE RESULTS Urine Glucose - NST: Positive MONITORING Monitor Explained: Monitor Explained; Test Explained; Patient Verbalized Understanding Time on Monitor: 03/13/2020 11:35 Time off Monitor: 03/13/2020 13:20 NST Duration: 105 NST INTERVENTIONS NST Interventions: PO Hydration; Reposition Patient; For Biophysical Profile Physician Notified NST: C. Portillo CNM BABY A: [id number] BABY A Movement : Present Contraction Frequency : occasional FHR Baseline : 140 Accelerations : 15X15 Decelerations : None Variability : Moderate 6-25bpm NST Review: Meets Criteria for Reactive NST NST Review and Verified By : WEN Barahona NST Results: Reactive NST COMMENTS NST Comments: moderate variability of NST with one 15x15 accels noted in 30 minutes, MD ordered BPP. Patient taken down for BPP and placed back on FHR and contraction monitor post BPP. fetus became reactive post BPP scan. NST REPORT Report Trigger: Send Report
[2020-03-14] MEDS ORDERED: RINGERS SOLUTION,LACTATED 1,000 ML IV PRN (17:42)
[2020-03-14 18:03] LABS: APPEARANCE,URINE SLIGHTLY-CLOUDY; BILIRUBIN,URINE NEGATIVE (NEGATIVE); COLOR,URINE YELLOW; GLUCOSE, URINE 150 mg/dL (NEGATIVE); KETONES,URINE NEGATIVE (NEGATIVE); LEUKOCYTE ESTERASE,URINE TRACE (NEGATIVE); NITRITE,URINE NEGATIVE (NEGATIVE); PROTEIN,URINE 30 mg/dL (NEGATIVE); URINE SPECIFIC GRAVITY 1.025
[2020-03-14 18:19] LABS: URINE AMPHETAMINES SCREEN NEGATIVE; URINE BARBITURATES SCREEN NEGATIVE; URINE BENZODIAZEPINES SCREEN NEGATIVE; URINE COCAINE SCREEN NEGATIVE; URINE MARIJUANA (THC) SCREEN NEGATIVE; URINE METHADONE SCREEN NEGATIVE; URINE PHENCYCLIDINE SCREEN NEGATIVE
--- NOTE | 2020-03-14 19:31 | Non Stress Test Report ---
Non Stress Test Datetime Report Generated by CPN: 03/14/2020 19:31 DEMOGRAPHIC EGA NST: 39.0 INDICATION Indication for Study (NST) Other: IUP @ 39.1 wks, Dehydration VITAL SIGNS NBPSYS NST: 129 NBPDIA NST: 91 MONITORING Monitor Explained: Monitor Explained; Test Explained; Patient Verbalized Understanding Time on Monitor: 03/13/2020 17:28 Time off Monitor: 03/13/2020 19:18 NST Duration: 110 NST INTERVENTIONS NST Interventions: PO Hydration Physician Notified NST: Dr Diaz BABY A Movement : Present Contraction Frequency : irregular FHR Baseline : 150 Accelerations : 15X15 Decelerations : None Variability : Moderate 6-25bpm NST Review: Meets Criteria for Reactive NST NST Review and Verified By : Kvng Black RN NST Results: Reactive NST REPORT Report Trigger: Send Report
== END 2020-03-14 19:36 | disposition home or self-care (01) ==
LOC: LC 17:17
PROVIDERS: ATTEND Obstetrics & Gynecology Gynecology
DX: O99.283 Endocrine, nutritional and metabolic diseases complicating pregnancy, third trimester (principal); E86.0 Dehydration; Z3A.39 39 weeks gestation of pregnancy
CPT/HCPCS: 80307; 81005

== ENCOUNTER 2020-03-18 04:09 | Inpatient (IN) | payer MEDICAID ==
[2020-03-18 04:54] LABS: APPEARANCE,URINE SLIGHTLY-CLOUDY; BILIRUBIN,URINE NEGATIVE (NEGATIVE); COLOR,URINE YELLOW; GLUCOSE, URINE NEGATIVE (NEGATIVE); KETONES,URINE NEGATIVE (NEGATIVE); LEUKOCYTE ESTERASE,URINE TRACE (NEGATIVE); NITRITE,URINE NEGATIVE (NEGATIVE); PROTEIN,URINE NEGATIVE (NEGATIVE)
[2020-03-18] MEDS ORDERED: RINGERS SOLUTION,LACTATED 1,000 ML IV ONE (05:06)
[2020-03-18 05:28] LABS: URINE AMPHETAMINES SCREEN NEGATIVE; URINE BARBITURATES SCREEN NEGATIVE; URINE BENZODIAZEPINES SCREEN NEGATIVE; URINE COCAINE SCREEN NEGATIVE; URINE MARIJUANA (THC) SCREEN NEGATIVE; URINE METHADONE SCREEN NEGATIVE; URINE PHENCYCLIDINE SCREEN NEGATIVE
[2020-03-18] MEDS ORDERED: PENICILLIN G POTASSIUM 5,000,000 UNIT in DEXTROSE 5%-WATER 100 ML IV ONE (05:30)
[2020-03-18 06:27] LABS: ABSOLUTE BASOPHILS # (AUTO) 0.1 10^3/uL (0.0-0.2); ABSOLUTE EOSINOPHILS # (AUTO) 0.2 10^3/uL (0.0-0.6); ABSOLUTE LYMPHOCYTES (AUTO) 2.1 10^3/uL (0.5-4.7); ABSOLUTE NEUT (AUTO) 6.2 10^3/uL (1.7-8.2); BASOPHILS % (AUTO) 0.6 % (0-2); EOSINOPHILS % (AUTO) 2.4 % (0-6); HEMATOCRIT 31.5 % (36.0-47.0); HEMOGLOBIN 10.6 g/dL (12.0-15.5); LYMPHOCYTES % (AUTO) 22.3 % (13-45); MEAN CORPUSCULAR HEMOGLOBIN 27.3 pg (27.0-33.4); MEAN CORPUSCULAR HGB CONC 33.5 g/dL (32.0-36.0); MEAN CORPUSCULAR VOLUME 82 fl (80-97); MONOCYTES % (AUTO) 10.3 % (3-13); PLATELET COUNT 268 10^3/uL (150-450); RED BLOOD COUNT 3.87 10^6/uL (3.72-5.28); RED CELL DISTRIBUTION WIDTH 15.7 % (11.5-14.0); SEGMENTED NEUTROPHILS % (AUTO) 64.4 % (42-78); TOTAL CELLS COUNTED % (AUTO) 100 %; WHITE BLOOD COUNT 9.6 10^3/uL (4.0-10.5)
[2020-03-18] MEDS ORDERED: MISOPROSTOL 0.2 MG TABLET ONE (06:30)
[2020-03-18] MEDS ORDERED: OXYTOCIN/0.9 % SODIUM CHLORIDE 0 UNIT/0 ML RTUINJ ONE (06:30)
[2020-03-18] MEDS ORDERED: OXYTOCIN 10 UNIT/ML VIAL ONE ×2 (06:30→15:28)
[2020-03-18] MEDS ORDERED: PENICILLIN G-K 5 MILLION UNIT VIAL ONE (06:30)
[2020-03-18] MEDS ORDERED: LIDOCAINE 1% INJ-PF (10 MG/ML) 30 ML SDV ONE (06:30)
--- NOTE | 2020-03-18 07:57 | Admission Physical ---
Datetime Report Generated by CPN: 03/18/2020 07:57 CURRENT ADMISSION Chief Complaint: Suspected Ruptured Membranes Indication for Induction: Not Applicable Admit Impression : Term, Intrauterine Admit Plan: Admit to Unit; Initiate Labor Protocol ALLERGIES Medication Allergies: No Medication Allergies: No Known Allergies (03/14/2020) Latex: No Latex Allergies OBSTETRICAL HISTORY EDC: 03/20/2020 00:00 : 2 Para: 1 Term: 0 : 1 SAB: 0 IAB: 0 Ectopic: 0 Livin Cesareans: 0 VBACs: 0 Multiple Births: 0 Gestational Diabetes: No Rh Sensitization: No Incompetent Cervix: No RON: No Infertility: No ART Treatment: No Uterine Anomaly: No IUGR: No Hx Previous C/S: No Macrosomia: No Hx Loss/Stillborn: No PIH: No Hx : No Placenta Previa/Abruption: No Depression/PP Depression: No PTL/PROM: Yes Post Hemorrhage: No Current Procedures: Ultrasound; NST Obstetrical History Comments: G1 - 2008 (Premature at 24 weeks) G2 - Current SEE RECORDS Alcohol: No Marijuana : No Cocaine: No Other Illicit Drugs: No Cigarettes: Never Smoker. 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 Heart Disease: No Hosp/Surgery: Yes Autoimmune Disorder: No Anesthetic Complications: No Kidney Disease: No Abnormal Pap Smear: No Neuro/Epilepsy: No Psychiatric Disorders: No Other Medical Diseases: No Hepatitis/Liver Disease: No Significant Family History: No Varicosities/Phlebitis: No Trauma/Violence : No Thyroid Dysfunction: No Medical History Comments: Right arm surgery in 2019 INFECTIOUS HISTORY Gonorrhea: No Genital Herpes: No Chlamydia: No Tuberculosis: No Syphilis: No Hepatitis: No HIV/AIDS Exposure: No Rash or Viral Illness: No HPV: No PHYSICAL EXAM General: Normal HEENT: Normal Neurologic: Normal Thyroid: Normal Heart: Normal Lungs: Normal Breast: Deferred Back: Normal Abdomen: Normal Genitourinary Exam: Normal Extremities: Normal DTRs: Normal Pelvic Type: Adequate Vital Signs: Reviewed VAGINAL EXAM Dilatation: 3 Effacement: 70 Station: -2 MEMBRANES Pooling: Positive Membranes: Ruptured FETUS A EGA: 39.5 Monitoring: External US FHR- Baseline: 120 Variability: Moderate 6-25bpm Decelerations: None FHR Category: Category I Estimated Weight (gm): 3800 Presentation: Vertex PLANS FOR LABOR AND DELIVERY Labor and Delivery: None Pain Management: Medications Other Pain Management Plans: IV pain medicine Feeding Preference: Breast Benefit of Breast Feed Discussed: Yes INFORMED CONSENT Signature: with User ID: [email or web address]
[2020-03-18] MEDS: RINGERS SOLUTION,LACTATED 1,000 ML IV PRN ×4 (08:05→22:25)
[2020-03-18] MEDS ORDERED: PENICILLIN G POTASSIUM 2,500,000 UNIT in DEXTROSE 5%-WATER 50 ML IV SCH (09:30)
[2020-03-18] MEDS ORDERED: FENTANYL CITRATE INJ/PF 100 MCG/2 ML AMPUL ONE ×3 (10:16→16:07)
[2020-03-18] MEDS: PENICILLIN G POTASSIUM 2,500,000 UNIT in DEXTROSE 5%-WATER 50 ML IV SCH ×3 (10:36→18:51)
[2020-03-18] MEDS ORDERED: ONDANSETRON HCL INJ/PF 4 MG/2 ML SDV ONE (10:52)
[2020-03-18] MEDS ORDERED: PHENYLEPHRINE HCL INJ/PF 10 MG/1 ML SDV ONE (10:52)
[2020-03-18] MEDS ORDERED: FENTANYL CITRATE INJ/PF 100 MCG/2 ML AMPUL IV ONE (11:30)
[2020-03-18] MEDS ORDERED: DIPHENHYDRAMINE HCL 50 MG/ML VIAL ONE (12:19)
[2020-03-18] MEDS ORDERED: EPHEDRINE SULFATE INJ 50 MG/1 ML AMPULE ONE ×2 (12:20→15:28)
[2020-03-18] MEDS ORDERED: ROPIVACAINE HCL 0.2% INJ/PF (2 MG/ML) 20 ML SDV ONE (12:21)
[2020-03-18] MEDS ORDERED: FENTANYL/BUPIVACAINE/NS/PF 300 MCG/150 ML RTUINJ EPI ONE (12:21)
[2020-03-18] MEDS ORDERED: DIPHENHYDRAMINE HCL 50 MG/ML VIAL IV ONE (12:24)
[2020-03-18] MEDS ORDERED: CITRIC ACID/SODIUM CITRATE ORAL SOLN 15 ML UDCUP ONE (15:17)
[2020-03-18] MEDS ORDERED: CEFAZOLIN 1 GM/D5W RTU 1 GM/50 ML RTUPB IV ONE (15:17)
--- NOTE | 2020-03-18 15:23 | L&D Progress Notes ---
PROGRESS NOTES Datetime Report Generated by CPN: 03/18/2020 15:23 PROGRESS NOTE Impression: Non-reassuring Heart Rate Procedures: Sterile Vag Exam Plan: Deliver- Section Vital Signs : Reviewed Comment: Dr. Braulio notified to evaluate NRFHT tracing VAGINAL EXAM Dilatation: 10 Effacement: 100 Station: 0 LAST VAGINAL EXAM-NURSING Nursing Exam Dilitation: 10.0 Nursing Exam Effacement: 100 Nursing Exam Station: 0 Nursing Exam Contractions: RN at bedside adjusting toco; contraction palpated MEMBRANES Pooling: Positive Membranes: Ruptured FETUS A FHR - Baseline: 140 Monitoring: External US Variability: Minimal - Undetectable to <=5bpm Decelerations: Late FHR Category: Category III FHR Comments: recurrent late decels after pt started pushing : 39.0 Estimated Weight (gm): 3800 Presentation: Vertex SIGNATURE SIGNATURE: [id number];[id number];[id number] Assignment: Sophie Ramsey MD Signature: with User ID: [email or web address] : with User ID: [email or web address]
[2020-03-18] MEDS ORDERED: LIDOCAINE 2% INJ-PF (20 MG/ML) 10 ML AMPUL ONE (15:28)
[2020-03-18] MEDS ORDERED: KETOROLAC TROMETHAMINE 60 MG/2 ML SDV ONE (16:09)
[2020-03-18] MEDS ORDERED: ACETAMINOPHEN 325 MG TABLET PO PRN (16:43)
[2020-03-18] MEDS ORDERED: OXYTOCIN/0.9 % SODIUM CHLORIDE 30 UNIT/500 ML RTUINJ IV PRN (16:43)
[2020-03-18] MEDS ORDERED: PROMETHAZINE HCL INJ 25 MG/1 ML VIAL IV PRN (16:43)
[2020-03-18] MEDS ORDERED: RINGERS SOLUTION,LACTATED 1,000 ML IV PRN (16:43)
[2020-03-18] MEDS ORDERED: DIPH/PERTUSS(ACELL)/TETANUS VAC/PF 0.5 ML SYR (>=10YO) IM PRN (16:43)
[2020-03-18] MEDS ORDERED: ACETAMINOPHEN 1,000 MG/100 ML RTUPB IV PRN (16:43)
[2020-03-18] MEDS ORDERED: MEASLES,MUMPS&RUBELLA VACC/PF 0.5 ML VIAL SUBCUT PRN (16:43)
[2020-03-18] MEDS ORDERED: OXYCODONE-ACETAMINOPHEN 5-325 MG TABLET PO PRN (16:43)
--- NOTE | 2020-03-18 16:43 | Operative Report ---
Operative Report DATE OF SURGERY: 03/18/20 PREOPERATIVE DIAGNOSIS: IUP @ 39 5, nonreassuring heart tones, asynclit ic presentation POSTOPERATIVE DIAGNOSIS: Same OPERATION: Low transverse hysterotomy section SURGEON: CRISTIAN MARTINES ANESTHESIA: Epidural COMPLICATIONS: None ESTIMATED BLOOD LOSS: 850 cc INTRAOPERATIVE FINDINGS: Male , occiput posterior presentation, PROCEDURE: PROCEDURE IN DETAIL: The patient was taken to the operating room, prepared and draped in a normal sterile fashion in a supine position with a leftward tilt. A transverse skin incision was made with a scalpel and carried through to the underlying layer of fascia with the same scalpel. The fascia was excised in the midline and extended laterally with Gwen. The fascia was then dissected from the rectus muscle sharply with Gwen and the rectus muscle was divided and the peritoneal cavity was entered sharply with the same Metzenbaum. With good visualization of the bladder and the uterus the bladder blade was inserted. The hysterotomy was nicked with a scalpel and extended laterally with surgeon finger fraction. The was then delivered atraumatically. The nose and mouth were suctioned with a suction bulb, the cord was clamped and cut and handed off to awaiting pediatricians. Cord blood was collected. The placenta was removed manually. The uterus was exteriorized and cleared of clots and debris. The hysterotomy was closed with 0 Monocryl in a running, locked fashion. A second layer of the same suture was used to imbricate to ensure hemostasis. The uterus was returned to the abdomen and peritoneal cavity was cleared of clots and debris. The rectus muscle and peritoneum were repaired with mattress stitch of 2-0 Chromic. The fascia was closed with 0-Vicryl. The subcutaneous layer was closed with plain catgut and the skin was closed with 4-0 Vicryl. The patient tolerated the procedure well. Sponge, lap, and needle counts correct x2 and the patient was taken to recovery in stable condition.
[2020-03-18] MEDS ORDERED: OXYTOCIN/0.9 % SODIUM CHLORIDE 30 UNIT/500 ML RTUINJ ONE (16:45)
[2020-03-18] MEDS ORDERED: ACETAMINOPHEN 1,000 MG/100 ML RTUPB IV ONE (16:46)
[2020-03-18] MEDS ORDERED: MORPHINE SULFATE 10 MG/ML INJ ONE (17:52)
[2020-03-18] MEDS: MORPHINE SULFATE 10 MG/ML INJ IV PRN ×2 (17:54→22:25)
--- NOTE | 2020-03-18 18:16 | Delivery Summary ---
Del Sum A-C Datetime Report Generated by CPN: 03/18/2020 18:16 DELIVERY PERSONNEL DELIVERY PERSONNEL: [id number] Delivery Doctor:: Sophie Ramsey MD MANUFACTURING ACCOUNTANT:: Caroline Shultz CRNA Associate Medical Director:: Catrachita Bowman RN Senior Mechanical Project Manager/SECURITY GUARD DISPATCHER: Markyanelis Martinez, MAGAZINE FEEDER Senior Mechanical Project Manager/SECURITY GUARD DISPATCHER: Candice Reyes, MAGAZINE FEEDER MATERNAL INFORMATION Delivery Anesthesia: Epidural Medications After Delivery: Pitocin Bolus-Please Comment; Pitocin 30 Units in 500ml NS/D5W Meds After Delivery Comment: and 20 units Pitocin in 1000mLs LR Delivery QBL: 978 Maternal Complications: None LABOR SUMMARY EDC: 03/20/2020 00:00 No. Babies in Womb: 1 Attempted: No Labor Anesthesia: Epidural LABOR INFORMATION Reason for Induction: Not Applicable Onset of Labor: 03/18/2020 10:00 Complete Dilatation: 03/18/2020 14:40 Oxytocin: N/A Group B Beta Strep: Positive Antibiotics # of Doses: 3 Antibiotics Time of Last Dose: 03/18/2020 14:25 Name of Antibiotic Given: Penicillin Steroids Given: None Reason Steroids Not Administered: Not Applicable MEMBRANES Membranes Rupture Method: Spontaneous Rupture of Membranes: 03/18/2020 00:15 Length of Rupture (hr): 15.70 Amniotic Fluid Color: Moderate Meconium Amniotic Fluid Amount: Small Amniotic Fluid Odor: Normal STAGES OF LABOR Stage 1 hr: 4 Stage 1 min: 40 Stage 2 hr: 1 Stage 2 min: 17 Stage 3 hr: 0 Stage 3 min: 1 Total Time in Labor hr: 5 Total Time in Labor min: 58 VAGINAL DELIVERY Laceration Extension #1: N/A Laceration Repair: Not Applicable Sponge Count Correct: N/A Sharps Count Correct: N/A CSECTION DELIVERY Primary Indication: Nonreassuring Status CSection Urgency: Emergency CSection Incidence: Primary Labor: Labor Elective: Nonelective CSection Incision: Lower Uterine Transverse BABY A INFORMATION Delivery Date/Time: 03/18/2020 15:57 Method of Delivery: Nurse Controlled Delivery: No Born in Route : No : N/A Forceps: N/A Vacuum Extraction: N/A Shoulder Dystocia : No PRESENTATION/POSITION BABY A Presentation: Cephalic Cephalic Presentation: Vertex Vertex Position: Left Occipital Posterior Breech Presentation: N/A PLACENTA INFORMATION BABY A Placenta Delivery Time : 03/18/2020 15:58 Placenta Method of Delivery: Manual Removal Placenta Status: Delivered SCORES BABY A Heart Rate 1 min: >100 bpm Resp Effort 1 min: Good Cry Reflex Irritability 1 min: Cough or Sneeze or Pulls Away Muscle Tone 1 min: Active Motion Color 1 min: Blue/Pale Resuscitation Effort 1 min: Tactile Stimulation SCORE 1 MIN: 8 Heart Rate 5 min: >100 bpm Resp Effort 5 min: Good Cry Reflex Irritability 5 min: Cough or Sneeze or Pulls Away Muscle Tone 5 min: Active Motion Color 5 min: Body [place], Extremities Blue SCORE 5 MIN: 9 INFORMATION BABY A Gestational Age at Delivery: 39.5 Gestational Status: Full Term- 39- 40.6 Weeks Outcome : Liveborn Condition : Stable Infant Sex: Male IDENTIFICATION BABY A Verification Date/Time: 03/18/2020 18:00 ID Band Number: [id number] Mother's Name Verified: Yes Infant RN Verifying Infant: Kvng BowmanWEN Additional Verifying Personnel: Sonya Alonso RN WEIGHT/LENGTH BABY A Infant Birthweight (gm): 3060 Infant Weight (lb): 6 Infant Weight (oz): 12 Length (in): 20.00 Infant Length (cm): 50.80 CORD INFORMATION BABY A Nuchal Cord : N/A Cord Blood Taken: Yes-For Eval (Mom's Blood Type - or O+) Suction: Mouth; Nose ASSESSMENT BABY A Skin to Skin: No BABY B INFORMATION : N/A SIGNATURES : I was personally available for consultation and serving as supervising physician for the MLP.
--- NOTE | 2020-03-18 18:16 | Birth Certificate Data ---
Cert Data Datetime Report Generated by CPPaty: 03/18/2020 18:16 CERTIFICATE DATA 47a. Care: Yes (03/13/2020 11:37:Venessa Hall RN) 47b. Date of First Visit: 07/28/2019 00:00 (03/13/2020 11:37:Venessa Hall RN) 47c. Date of Last Visit: 03/15/2020 00:00 (03/13/2020 11:37:Venessa Hall RN) 47d. Number of Visits: 28 (03/13/2020 11:37:Venessa Hall RN) 48a. Number of Prev Live Births: 1 (03/13/2020 11:37:Venessa Hall RN) 48b. Now Livin (03/13/2020 11:37:Gwen Barrientos RN) 48c. Live Births Now : 0 (03/13/2020 11:37:QS system process) 48d. Date of Last Live : 10/19/2008 00:00 (03/13/2020 11:37:Venessa Hall RN) 48e. Losses: 0 (03/13/2020 11:37:Venessa Hall RN) RISK FACTORS IN THIS 49a. Diabetes: No (03/13/2020 11:37:Venessa Hall RN) 49b. Hypertension: No (03/13/2020 11:37:Venessa Hall RN) 49c. Previous Births: 1 (03/13/2020 11:37:Gwen Barrientos RN) 49d. Stillborns: No (03/13/2020 11:37:Venessa Hall RN) 49d. IUGR: No (03/13/2020 11:37:Venessa Hall RN) 49e. Infertility Treatment: No (03/13/2020 11:37:Venessa Hall RN) 49f. Previous Cesareans: 0 (03/13/2020 11:37:Venessa Hall RN) Mother's Height 50b. Height Inches: 65 (03/18/2020 04:22:QS system process) Mother's Weight 51a. Pre- Weight (lbs): 182 (03/13/2020 11:37:Venessa Hall RN) 51b. Weight at Delivery (lbs): 189 (03/18/2020 04:22:QS system process) 52. Dt Last Normal Menses Began: 06/04/2019 00:00 (03/13/2020 11:37:Gwen Barrientos RN) Infections Present/Treated 53a. Gonorrhea: No (03/13/2020 11:37:Venessa Hall RN) Results this Hospital Visit : Negative (03/13/2020 11:37:Gwen Barrientos RN) 53b. Syphilis: No (03/13/2020 11:37:Venessa Hall RN) Results this Hospital Visit: NONREACTIVE (03/18/2020 06:04:QS system process) 53c. Chlamydia: No (03/13/2020 11:37:Venessa Hall RN) Results this Hospital Visit: Negative (03/13/2020 11:37:Gwen Barrientos RN) 53d. Hepatitis B: No (03/13/2020 11:37:Venessa Hall RN) Results this Hospital Visit: Negative (03/13/2020 11:37:Gwen Barrientos RN) 53e. Hepatitis C: Negative (03/13/2020 11:37:SHAY Martin) 53h. Mother Tested for HBsAG: Yes (03/13/2020 11:37:Venessa Hall RN) 53i. Date Tested: 08/16/2019 00:00 (03/13/2020 11:37:Venessa Hall RN) 53j. Test Result: Negative (03/13/2020 11:37:Gwen Barrientos RN) Obstetric Procedures 54a, b, c. Obstetric Procedures: Ultrasound; NST (03/13/2020 11:37:Venessa Hall RN) Cigarette Smoking Cigarette Smoking: Never Smoker. [id number] (03/13/2020 11:37:Venessa Hall RN) 55a. 3 Months Before Preg - Ci (03/13/2020 11:37:Venessa Hall RN) 55a. Packs: 0 (03/13/2020 11:37:Venessa Hall RN) 55b. 1st Trimester of Preg- Ci (03/13/2020 11:37:Venessa Hall RN) 55b. Packs: 0 (03/13/2020 11:37:Venessa Hall RN) 55c. 2nd Trimester of Preg- Ci (03/13/2020 11:37:Venessa Hall RN) 55c. Packs: 0 (03/13/2020 11:37:Venessa Hall RN) 55d. 3rd Trimester of Preg- Ci (03/13/2020 11:37:Venessa Hall RN) 55d. Packs: 0 (03/13/2020 11:37:Venessa Hall RN) Onset of Labor 56a. PROM >12 Hrs: 15.70 (03/18/2020 05:47:QS system process) 56b. Precipitous Labor <3 Hrs: 5 (03/13/2020 11:37:QS system process) 56c. Prolonged Labor > 20 Hrs: 5 (03/13/2020 11:37:QS system process) 57a. Induction of Labor: N/A (03/13/2020 11:37:Catrachita Bowman RN) 57c. Non-Vertex Presentation A: Vertex (03/13/2020 11:37:Catrachita Bowman RN) 57d. Steroids - Lung Mat: None (03/13/2020 11:37:Catrachita Bowman RN) 57d. Steroids - Lung Mat: Not Applicable (03/13/2020 11:37:Catrachita Bowman RN) 57e. Antibiotics During Labor: 03/18/2020 14:25 (03/13/2020 11:37:Catrachita Bowman RN) 57f. Mat [place] or Temp >100.4: 98.6 (03/13/2020 11:37:Catrachita Bowman RN) 57g. Moderate/Heavy Meconium: Moderate Meconium (03/18/2020 11:26:Catrachita Bowman RN) 57h. Intolerance of Labor: Nonreassuring Status (03/13/2020 11:37:Catrachita Bowman RN) 57i. Epidural/Spinal Anesthesia: Epidural (03/13/2020 11:37:Catrachita Bowman RN) Method of Delivery 58a. Forceps - Unsuccessful A: N/A (03/13/2020 11:37:Catrachita Bowman RN) 58b. Vacuum - Unsuccessful A: N/A (03/13/2020 11:37:Catrachita Bowman RN) 58c. Presentation at 58c. Presentation at - A : Vertex (03/13/2020 11:37:Catrachita Bowman RN) 58c. Presentation at - A : N/A (03/13/2020 11:37:Catrachita Bowman RN) 58c. Presentation at - A : Cephalic (03/13/2020 11:37:Catrachita Bowman RN) Final Route and Method of Del 58d. Baby A Route/Delivery: (03/13/2020 11:37:Catrachita Bowman RN) 58e. Trial of Labor Attempted: No (03/13/2020 11:37:Catrachita Bowman RN) 58e. Trial of Labor Attempted A: N/A (03/13/2020 11:37:Catrachita Bowman RN) 58e. Trial of Labor Attempted B: N/A (03/13/2020 11:37:Catrachita Bowman RN) Birthweight Baby A: 3060 (03/13/2020 11:37:Albina Larsen RN) 60a. Pounds : 6 (03/13/2020 11:37:QS system process) 60b. Ounces: 12 (03/13/2020 11:37:QS system process) 61. GA at Delivery Baby A: 39.5 (03/13/2020 11:37:Catrachita Bowman RN) : Full Term- 39- 40.6 Weeks (03/13/2020 11:37:QS system process) 62a. 5 Minute Baby A: 9 (03/13/2020 11:37:QS system process)
[2020-03-18] MEDS: DOCUSATE SODIUM 100 MG CAPSULE PO SCH (18:50)
[2020-03-18] MEDS: OXYCODONE-ACETAMINOPHEN 5-325 MG TABLET PO PRN (19:42)
[2020-03-19] MEDS: KETOROLAC TROMETHAMINE INJ/PF 30 MG/1 ML SDV IV SCH ×2 (02:11→09:36)
[2020-03-19] MEDS: OXYCODONE-ACETAMINOPHEN 5-325 MG TABLET PO PRN ×4 (05:19→20:36)
[2020-03-19 08:18] LABS: HEMATOCRIT 25.2 % (36.0-47.0); MEAN CORPUSCULAR HEMOGLOBIN 26.7 pg (27.0-33.4); MEAN CORPUSCULAR HGB CONC 32.6 g/dL (32.0-36.0); MEAN CORPUSCULAR VOLUME 82 fl (80-97); PLATELET COUNT 233 10^3/uL (150-450); RED BLOOD COUNT 3.08 10^6/uL (3.72-5.28); RED CELL DISTRIBUTION WIDTH 15.8 % (11.5-14.0); WHITE BLOOD COUNT 18.4 10^3/uL (4.0-10.5)
[2020-03-19 08:19] LABS: HEMOGLOBIN 8.2 g/dL (12.0-15.5)
[2020-03-19] MEDS: PRENATAL VITAMIN W DHA CAPSULE PO SCH (09:35)
[2020-03-19] MEDS: DOCUSATE SODIUM 100 MG CAPSULE PO SCH ×2 (09:36→20:07)
--- NOTE | 2020-03-19 12:23 | PDOC PROGRESS REPORT ---
Subjective-OB Progress Note for:: 03/19/20 - POD #2, doing well, denies fever, chills, UOB, voiding, O+, Rubella Immune Physical Exam (OB) Vital Signs: Temp Pulse Resp BP Pulse Ox 98.2 F 83 17 113/65 100 03/19/20 11:30 03/19/20 11:30 03/19/20 11:30 03/19/20 11:30 03/19/20 11:30 Intake & Output 03/18/20 03/19/20 03/20/20 06:59 06:59 06:59 Intake Total 3132 400 Output Total 1050 Balance 2 400 Weight 86 kg - General General Appearance: Appears well, Alert In distress: None - PIH/Pre-Eclampsia DTR's: 2 + Clonus: Negative Headache: Absent Epigastric Pain: No Visual Changes: No - Dressing Removed: No - drainage outlined Incision: Dressing, Draining - Maternal Morbidity 59. Maternal Morbidity (serious complications experinced by the mother associated with labor and delivery: None of the above - Lochia Lochia Amount: Scant < 10 ml Lochia Color: Rubra/Red - Abdomen Description: Tender, Soft, Round Hernia Present: No Fundal Description: Firm, Midline Fundal Height: u/u - u/2 - Respiratory Respiratory Status: No respiratory distress - Abdominal Distension: No distension Tenderness: Nontender - Genitourinary Genitourinary Note: voiding - Extremities Upper extremity: Normal inspection Lower extremities: Normal inspection - Neurological Cognition: Normal Orientation: AAOx4 - Psychological Associated symptoms: Normal affect, Normal mood - Skin Skin Temperature: Warm Skin Moisture: Dry Objective-Diagnostic Laboratory: 03/19/20 07:29 03/19/20 07:29 WBC 18.4 H RBC 3.08 L Hgb 8.2 L D Hct 25.2 L MCV 82 MCH 26.7 L MCHC 32.6 RDW 15.8 H Plt Count 233 Assessment and Plan(PN) - Assessment and Plan (1) Premature rupture of membranes, antepartum Is this a current diagnosis for this admission?: Yes (2) 39 weeks gestation of Is this a current diagnosis for this admission?: Yes (3) Status post primary low transverse section Is this a current diagnosis for this admission?: Yes Plan:: ambulation encouraged, Routine Orders - Time Spent with Patient Time with patient: Less than 15 minutes Medications reviewed and adjusted accordingly: Yes - Disposition Anticipated Discharge Disposition: Home, Self Care Anticipated Discharge Timeframe: within 24 hours
[2020-03-19] MEDS ORDERED: IRON SUCROSE COMPLEX INJ/PF 100 MG/5 ML SDV IV ONE (12:24)
[2020-03-19] MEDS ORDERED: FERROUS SULFATE 325 MG TABLET PO SCH (13:00)
[2020-03-19] MEDS: SIMETHICONE 80 MG TAB.CHEW PO PRN ×2 (16:38→23:31)
[2020-03-19] MEDS: IBUPROFEN 800 MG TABLET PO SCH ×2 (17:18→23:25)
[2020-03-20] MEDS ORDERED: IBUPROFEN 800 MG TABLET PO SCH
[2020-03-20] MEDS: OXYCODONE-ACETAMINOPHEN 5-325 MG TABLET PO PRN ×2 (03:12→10:00)
[2020-03-20] MEDS: IBUPROFEN 800 MG TABLET PO SCH (05:41)
[2020-03-20] MEDS: PRENATAL VITAMIN W DHA CAPSULE PO SCH (10:00)
[2020-03-20] MEDS: DOCUSATE SODIUM 100 MG CAPSULE PO SCH (10:00)
[2020-03-20 11:58] VITALS: BP 123/74
--- NOTE | 2020-03-20 12:09 | PDOC DISCHARGE SUMMARY ---
Impression - Admit/DC Date/PCP Admission Date/Primary Care Provider: 03/18/20 05:12 SCOTT PEREZ MD Discharge Date: 03/20/20 - POD #2, doing well, desires to go home today, O+. rubella Immune, bottlefeeding - Discharge Diagnosis (1) Premature rupture of membranes, antepartum Is this a current diagnosis for this admission?: Yes (2) 39 weeks gestation of Is this a current diagnosis for this admission?: Yes (3) Status post primary low transverse section Is this a current diagnosis for this admission?: Yes (4) Acute blood loss anemia Is this a current diagnosis for this admission?: Yes - Additional Information Resuscitation Status: Full Code Discharge Diet: As Tolerated, Regular Discharge Activity: Activity As Tolerated, No Driving, No Lifting Over 10 Pounds, Pelvic Rest Referrals: SCOTT PEREZ MD [Primary Care Provider] - Prescriptions: Ferrous Sulfate [Ferosul] 325 mg PO DAILY #30 tablet Ibuprofen [Motrin 800 mg Tablet] 800 mg PO Q6 #60 tablet Oxycodone HCl/Acetaminophen [Percocet 5-325 mg Tablet] 1 tab PO Q4HP PRN #30 tablet PRN Reason: Pain Scale Of 4 Home Medications: Vit,Calc76/Iron/Folic [Prenatabs Rx Tablet] 1 tab PO DAILY 03/13/20 Ferrous Sulfate [Ferosul] 325 mg PO DAILY #30 tablet 03/20/20 Ibuprofen [Motrin 800 mg Tablet] 800 mg PO Q6 #60 tablet 03/20/20 Oxycodone HCl/Acetaminophen [Percocet 5-325 mg Tablet] 1 tab PO Q4HP PRN #30 tablet 03/20/20 Hospital Course 59. Maternal Morbidity (serious complications experinced by the mother associated with labor and delivery: None of the above Results Laboratory Results: WBC 18.4 10^3/uL (4.0-10.5) H 03/19/20 07:29 RBC 3.08 10^6/uL (3.72-5.28) L 03/19/20 07:29 Hgb 8.2 g/dL (12.0-15.5) L D 03/19/20 07:29 Hct 25.2 % (36.0-47.0) L 03/19/20 07:29 MCV 82 fl (80-97) 03/19/20 07:29 MCH 26.7 pg (27.0-33.4) L 03/19/20 07: MCHC 32.6 g/dL (32.0-36.0) 03/19/20 07: RDW 15.8 % (11.5-14.0) H 03/19/20 07:29 Plt Count 233 10^3/uL (150-450) 03/19/20 07:29 Lymph % (Auto) 22.3 % (13-45) 03/18/20 06:04 [place] % (Auto) 10.3 % (3-13) 03/18/20 06:04 Eos % (Auto) 2.4 % (0-6) 03/18/20 06:04 Baso % (Auto) 0.6 % (0-2) 03/18/20 06:04 Absolute Neuts (auto) 6.2 10^3/uL (1.7-8.2) 03/18/20 06:04 Absolute Lymphs (auto) 2.1 10^3/uL (0.5-4.7) 03/18/20 06:04 Absolute Monos (auto) 1.0 10^3/uL (0.1-1.4) 03/18/20 06:04 Absolute Eos (auto) 0.2 10^3/uL (0.0-0.6) 03/18/20 06:04 Absolute Basos (auto) 0.1 10^3/uL (0.0-0.2) 03/18/20 06:04 Seg Neutrophils % 64.4 % (42-78) 03/18/20 06:04 Urine Color YELLOW 03/18/20 04:25 Urine Appearance SLIGHTLY-CLOUDY 03/18/20 04:25 Urine pH 6.0 (5.0-9.0) 03/18/20 04:25 Ur Specific [place] 1.010 03/18/20 04:25 Urine Protein NEGATIVE mg/dL (NEGATIVE) 03/18/20 04:25 Urine Glucose (UA) NEGATIVE mg/dL (NEGATIVE) 03/18/20 04:25 Urine Ketones NEGATIVE mg/dL (NEGATIVE) 03/18/20 04:25 Urine Blood NEGATIVE (NEGATIVE) 03/18/20 04:25 Urine Nitrite NEGATIVE (NEGATIVE) 03/18/20 04:25 Urine Bilirubin NEGATIVE (NEGATIVE) 03/18/20 04:25 Urine Urobilinogen 2.0 mg/dL (<2.0) H 03/18/20 04:25 Ur Leukocyte Esterase TRACE (NEGATIVE) H 03/18/20 04:25 Urine Ascorbic Acid NEGATIVE (NEGATIVE) 03/18/20 04:25 Membranes Rupture POSITIVE (NEGATIVE) H 03/18/20 04:30 Urine Opiates Screen NEGATIVE 03/18/20 04:25 Urine Methadone Screen NEGATIVE 03/18/20 04:25 Ur Barbiturates Screen NEGATIVE 03/18/20 04:25 Ur Phencyclidine Scrn NEGATIVE 03/18/20 04:25 Ur Amphetamines Screen NEGATIVE 03/18/20 04:25 U Benzodiazepines Scrn NEGATIVE 03/18/20 04:25 Urine Cocaine Screen NEGATIVE 03/18/20 04:25 U Marijuana (THC) Screen NEGATIVE 03/18/20 04:25 RPR NONREACTIVE (NONREACTIVE) 03/18/20 06:04 Blood Type O POSITIVE 03/18/20 06:04 Antibody Screen NEGATIVE 03/18/20 06:04 Plan Plan of Treatment: d/c home, f/up with [facility] in one week for incision check Time Spent: Less than 30 Minutes
== END 2020-03-20 14:30 | disposition home or self-care (01) | DRG 787 ==
LOC: LC 04:09 → LR 05:12 → 2S 18:30
PROVIDERS: ADMIT Obstetrics & Gynecology; ATTEND Obstetrics & Gynecology
PROC: 10D00Z1 Extraction of Products of Conception, Low, Open Approach (ICD-10-PCS; principal; 2020-03-18)
DX: O76 Abnormality in fetal heart rate and rhythm complicating labor and delivery (principal); D62 Acute posthemorrhagic anemia; O99.824 Streptococcus B carrier state complicating childbirth; O77.0 Labor and delivery complicated by meconium in amniotic fluid; O75.89 Other specified complications of labor and delivery; O99.02 Anemia complicating childbirth; O16.4 Unspecified maternal hypertension, complicating childbirth; Z3A.39 39 weeks gestation of pregnancy; Z37.0 Single live birth
CPT/HCPCS: 1967; 1968; 36415; 80307; 81005; 84112; 85025; 85027; 86592; 86850; 86900; 86901; 94799; 99140; J0131; J0690; J1200; J1756; J1885; J2270; J2370; J2405; J2540; J2590; J2795; J3010; J3490; J7060; J7120